=== PATIENT | male | born 1935 | race Two or more races ===

== ENCOUNTER 2017-10-26 08:30 | Inpatient (IN) | payer MEDICARE ==
[~2017-10-26] VITALS: Ht 172.7 cm; Wt 63.5 kg
[2017-10-26] MEDS ORDERED: ONDANSETRON HCL/PF 4 MG/2 ML VIAL ONE (08:41)
--- NOTE | 2017-10-26 08:42 | NUR ---
PT TAKEN TO CT SCAN.
--- NOTE | 2017-10-26 08:45 | NUR ---
[id number] FROM [facility] FOR AMS, LAST KNOWN WELL TIME 20MIN AGO. HYPOTENSIVE, SOB AND VOMITING. ON NON-REBREATHER MASK. NOTED PALE, YELLOWISH IN COLOR. IV ACCESS FAMILY ASSISTANT. SEEN Levi Blanco MD FOR EVAL. BS-206. SAFETY AND COMFORT MEASURES PROVIDED. WILL MONITOR.
[2017-10-26] MEDS ORDERED: ONDANSETRON HCL/PF 4 MG/2 ML VIAL IVP ONE (09:00)
[2017-10-26] MEDS ORDERED: AZITHROMYCIN 500 MG in IV D5W 250 ML IV ONE (09:00)
[2017-10-26] MEDS ORDERED: CEFTRIAXONE 1GM BAG (ER ONLY) 50 ML IV ONE ×2 (09:00→09:39)
[2017-10-26] MEDS ORDERED: IV NS 0.9% 1,000 ML BAG IV ONE ×3 (09:00→12:30)
[2017-10-26] MEDS ORDERED: VANCOMYCIN 1 GM in IV D5W 250 ML IV ONE (09:00)
[2017-10-26 09:06] LABS: BASOPHILS % (AUTO) 0.2 % (0.0-2.0); EOSINOPHILS # (AUTO) 0.2 /CMM (0.0-0.7); EOSINOPHILS % (AUTO) 1.7 % (0.0-6.0); HEMATOCRIT 34 % (39-51); HEMOGLOBIN 11.2 g/dL (13.5-17.5); LYMPHOCYTES # (AUTO) 2.9 /CMM (0.8-4.8); LYMPHOCYTES % (AUTO) 23.6 % (20.0-44.0); MEAN CORPUSCULAR HEMOGLOBIN 30 PG (26.0-33.0); MEAN CORPUSCULAR HGB CONC 33 g/dl (31.0-36.0); MEAN CORPUSCULAR VOLUME 91 fL (80-96); MONOCYTES # (AUTO) 0.5 /CMM (0.1-1.30); MONOCYTES % (AUTO) 3.8 % (2.0-12.0); NEUTROPHILS # (AUTO) 8.8 /CMM (1.8-8.9); NEUTROPHILS % (AUTO) 70.7 % (43.0-81.0); PLATELET COUNT (AUTO) 224 /CMM (150-450); RDW COEFFICIENT OF VARIATION 14.6 (11.5-15.0); RED BLOOD CELL COUNT(AUTO) 3.76 MIL/uL (4.5-6.0); WHITE BLOOD COUNT (AUTO) 12.4 K/uL (4.3-11.0)
[2017-10-26 09:16] LABS: CALCIUM, SERUM 9.1 mg/dL (8.5-10.1); CARBON DIOXIDE 22 mmol/L (21-32); CHLORIDE 112 mmol/L (98-107); CREATININE 1.8 mg/dL (0.6-1.3); GLUCOSE 210 mg/dL (74-106); POTASSIUM 3.7 mmol/L (3.5-5.1); SODIUM SERUM 145 mmol/L (136-145); UREA NITROGEN, BLOOD 33 mg/dL (7-18)
--- NOTE | 2017-10-26 09:20 | NUR ---
SECOND IV ACCESS STARTED. BLOOD DRAWN FOR LABS. URINE SAMPLE OBTAINED, SENT. NOTED IN SOILED DIAPER, CHANGED AND CLEANED PER PROTOCOL.
--- NOTE | 2017-10-26 09:45 | NUR ---
ASHVIN AT BS.
--- NOTE | 2017-10-26 09:50 | NUR ---
ORDERS FOR MEDS CARRIED OUT.
[2017-10-26] MEDS ORDERED: LISI10TA5 PO (10:22)
[2017-10-26] MEDS ORDERED: PANT40TA4 PO (10:22)
[2017-10-26] MEDS ORDERED: DOCU-25 PO (10:22)
[2017-10-26] MEDS ORDERED: MULT-213 PO (10:22)
[2017-10-26] MEDS ORDERED: LOSA100T15 PO (10:22)
[2017-10-26] MEDS ORDERED: LORA0.5T PO (10:22)
[2017-10-26 10:35] LABS: APPEARANCE,URINE CLOUDY (CLEAR); BILIRUBIN,URINE NEGATIVE (NEGATIVE); BLOOD, URINE TRACE-INTA Ery/uL (NEGATIVE); COLOR,URINE YELLOW (YELLOW); KETONES,URINE NEGATIVE (NEGATIVE); LEUKOCYTE ESTERASE ,URINE 2+ (NEGATIVE); NITRITE, URINE NEGATIVE (NEGATIVE); PROTEIN,URINE 2+ mg/dl (NEGATIVE); UGLUCOSE TRACE mg/dL (NEGATIVE); UROBILINOGEN,URINE 0.2 EU/dL (0.2)
--- NOTE | 2017-10-26 10:40 | NUR ---
PT TAKEN TO CT.
[2017-10-26 10:50] LABS: BACTERIA,URINE Few /HPF (None Seen); SQUAMOUS EPITHELIAL CELL,UR Few /HPF (None Seen); WBC,URINE 80-100 /HPF (0-3)
[2017-10-26] MEDS ORDERED: ACETAMINOPHEN 325 MG TABLET PO PRN (11:00)
[2017-10-26] MEDS ORDERED: MAG HYDROX/AL HYDROX/SIMETH 30 ML UDC PO PRN (11:00)
[2017-10-26] MEDS ORDERED: ZOLPIDEM TARTRATE 5 MG TABLET PO PRN (11:00)
[2017-10-26] MEDS ORDERED: Z GUARD REMEDY 2 OZ OINT TP PRN (11:00)
[2017-10-26] MEDS ORDERED: MAGNESIUM HYDROXIDE 30 ML UDC PO PRN (11:00)
[2017-10-26] MEDS ORDERED: ONDANSETRON HCL/PF 4 MG/2 ML VIAL IVP PRN (11:00)
[2017-10-26] MEDS ORDERED: HYDROCODONE/APAP 5/325MG 1 EACH TABLET PO PRN (11:00)
[2017-10-26] MEDS ORDERED: DOCUSATE SODIUM 100 MG CAPSULE PO PRN (11:00)
--- NOTE | 2017-10-26 12:40 | NUR ---
Patient is resting comfortably in bed with eyes closed. Easily aroused. VSS
[2017-10-26 12:51] LABS: BILIRUBIN,DIRECT 0.1 mg/dL (0.0-0.2); BILIRUBIN,TOTAL 0.6 mg/dL (0.2-1.0)
--- NOTE | 2017-10-26 13:30 | NUR ---
PT SWITCHED FROM NONREBREATHER MASK TO NC- TOLERATING WELL.
--- NOTE | 2017-10-26 16:18 | NUR ---
REPORT GIVEN TO TR NOLEN FOR LILIAN 113-2.
[2017-10-26 17:00] VITALS: BP 161/67
--- NOTE | 2017-10-26 17:00 | NUR ---
LILIAN RN NOTES RECEIVED PT FROM ER, DX SEPSIS/UTI, CONFUSED, OPENS EYES, FLAT AFFECT, ON O2 3LPM NC, NOT IN ANY DISTRESS, NO SOB, RESPIRATION UNLABORED, TELEMETRY READS SR HR 68 , NO SIGNS OF PAIN OR DISCOMFORT, L WRIST G 20 AND RAC G 20 IV ACCESS, BOTH FLUSHES WELL, BOTH SITES CLEAR. ONGOING IVF TO RT AC. BED REST, REGULAR DIET, FEEDER, SEE NURSING FLOWSHEET FOR SKIN ISSUES, PHOTOS TAKEN AND PLACED IN CHART, CALL LIGHT WITHIN REACH, BED LOW LOCKED, SR UP X 2, NEEDS ANTICIPATED, WILL CONTINUE TO MONITOR.
[2017-10-26] MEDS: ENOXAPARIN SODIUM 30 MG/0.3 ML DISP.SYRIN SQ SCH (17:48)
--- NOTE | 2017-10-26 18:46 | NUR ---
LILIAN CLOSING NOTES ALL NEEDS MET. RESTING COMFORTABLY. NOT [place]IAN [place] DISTRESS. WILL ENDORSE TO NEXT SHIFT FOR MUNIRA.
[2017-10-26 20:00] VITALS: BP 144/60
--- NOTE | 2017-10-26 20:00 | NUR ---
RN INITIAL NOTES RECEIVED THE PATIENT AWAKE ON BED, CONFUSED, DOES NOT FOLLOW COMMANDS. ON 4L NASAL CANNULA, SATURATING WELL, NO S/S OF RESP DISTRESS. CURRENTLY SINUS HUGO ON THE MONITOR, HR 50'S. ON DIAPERS ONLY. LEFT WRIST 20G AND RIGHT AC 20G WITH NS @ 75MLS/HR, NO S/S OF INFILTRATION/INFECTION, DRESSING CDI. BED LOW AND LOCKED, SIDERAILS UP, BED ALARM ON. WILL MONITOR
--- NOTE | 2017-10-26 21:30 | NUR ---
RN NOTES GAVE REPORT TO TAMANNA HOUSE FOR THE PATIENT'S CONTINUITY OF CARE
--- NOTE | 2017-10-26 21:56 | NUR ---
INITIAL RN NOTES PT RESTING IN BED, NOT IN ANY DISTRESS, NO SOB, RESPIRATION UNLABORED, NO SIGNS OF PAIN OR DISCOMFORT, L WRIST G 20 AND RAC G 20 IV ACCESS, BOTH FLUSHES WELL, BOTH SITES CLEAR, BED REST, REGULAR DIET, CALL LIGHT WITHIN REACH, BED LOW LOCKED, SR UP X 2, NEEDS ANTICIPATED, WILL CONTINUE TO MONITOR.
[2017-10-27 04:00] VITALS: BP 152/68
[2017-10-27] MEDS: IV NS 0.9% 1,000 ML IV PRN ×3 (05:57→20:33)
--- NOTE | 2017-10-27 07:04 | NUR ---
RN CLOSING NOTES PT RESTING IN BED, NOT IN ANY DISTRESS, NO SOB, RESPIRATION UNLABORED, NO SIGNS OF PAIN OR DISCOMFORT, L WRIST G 20 AND RAC G 20 IV ACCESS, BOTH FLUSHES WELL, BOTH SITES CLEAR, REGULAR DIET, CALL LIGHT WITHIN REACH, BED LOW LOCKED, SR UP X 2, NEEDS ANTICIPATED, RN WILL ENDORSE TO AM RN.
[2017-10-27 07:07] LABS: BASOPHILS % (AUTO) 0.2 % (0.0-2.0); EOSINOPHILS % (AUTO) 0.1 % (0.0-6.0); HEMATOCRIT 32 % (39-51); LYMPHOCYTES # (AUTO) 1.4 /CMM (0.8-4.8); LYMPHOCYTES % (AUTO) 10.2 % (20.0-44.0); MEAN CORPUSCULAR HEMOGLOBIN 31 PG (26.0-33.0); MEAN CORPUSCULAR HGB CONC 34 g/dl (31.0-36.0); MEAN CORPUSCULAR VOLUME 91 fL (80-96); MONOCYTES # (AUTO) 0.7 /CMM (0.1-1.30); MONOCYTES % (AUTO) 4.9 % (2.0-12.0); NEUTROPHILS # (AUTO) 11.7 /CMM (1.8-8.9); NEUTROPHILS % (AUTO) 84.6 % (43.0-81.0); PLATELET COUNT (AUTO) 173 /CMM (150-450); RDW COEFFICIENT OF VARIATION 14.6 (11.5-15.0); RED BLOOD CELL COUNT(AUTO) 3.57 MIL/uL (4.5-6.0); WHITE BLOOD COUNT (AUTO) 13.8 K/uL (4.3-11.0)
[2017-10-27 07:18] LABS: CARBON DIOXIDE 27 mmol/L (21-32); CHLORIDE 113 mmol/L (98-107); CREATININE 1.6 mg/dL (0.6-1.3); GLUCOSE 101 mg/dL (74-106); MAGNESIUM 1.9 mg/dL (1.8-2.4); PHOSPHORUS 3.8 mg/dL (2.5-4.9); POTASSIUM 4.1 mmol/L (3.5-5.1); SODIUM SERUM 147 mmol/L (136-145); UREA NITROGEN, BLOOD 30 mg/dL (7-18)
--- NOTE | 2017-10-27 07:30 | NUR ---
RN NOTES RECEIVED PT IN STABLE CONDITION, CONFUSED, RESTING IN BED. ON 4L NC SATING WELL NO SOB OR DISTRESS NOTED. RAC 20G IV SITE WITH IVF AT 75ML/HR. LW20G IV INTACT. BED LOCKED AND IN LOWEST POSITION, CALL LIGHT WITHIN REACH, SIDE RAILS UPX3, WILL CONT TO MONITOR.
[2017-10-27 08:00] VITALS: BP 175/66
[2017-10-27] MEDS: MULTIVIT, IRON, MIN NO. 8, FA 1 TAB PO SCH (08:26)
[2017-10-27] MEDS: PANTOPRAZOLE 40 MG TABLET.DR PO SCH (08:26)
[2017-10-27 10:00] VITALS: BP 161/86
[2017-10-27] MEDS ORDERED: CEFTRIAXONE 1 G in IV D5W 50 ML IV SCH (10:00)
--- NOTE | 2017-10-27 10:00 | NUR ---
RN NOTES REPORT GIVEN TO RN FOR CONTINUITY OF CARE ON 2ND FLOOR, PT TRANSFERRED IN STABLE CONDITION.
--- NOTE | 2017-10-27 10:00 | NUR ---
ms near eastern archaeology lecturer notes received report from LILIAN nurse patient in bed, awake, no apparent distress noted. On 02 @ 4lpm via NC with 02 saturation of 100%. IV in placed and intact and patent, with IVF infusing well. No complaint or pain noted. Alert and oriented x 2. Kept patient clean and comfortable in bed, call light with in patient reach, will continue to monitor accordingly.
[2017-10-27 16:00] VITALS: BP 156/76
--- NOTE | 2017-10-27 19:25 | NUR ---
ms rn closing notes All needs provided, attended, and anticipated. kept patient clean and comfortable in bed, call light with in patient reach, endorsed to next shift RN to continue care.
--- NOTE | 2017-10-27 19:30 | NUR ---
RN NOTE; RECEIVED PT IN BED AWAKE AND RESPONSIVE. BREATHING EVENLY. NO SOB. NAD. NO S/S OR C/O PAIN OR DISCOMFORT. ON ONGOING IVF HYDRATION. IV SITE INTACT. NEEDS ATTENDED. BED LOW LOCKED. CALL LIGHT WITHIN REACH. WILL CONT TO MONITOR ,
[2017-10-27 20:00] VITALS: BP 145/79
[2017-10-27] MEDS: MEROPENEM 500 MG in IV NS 0.9% 50 ML IV SCH (20:25)
[2017-10-27] MEDS: ENOXAPARIN SODIUM 30 MG/0.3 ML DISP.SYRIN SQ SCH (20:30)
--- NOTE | 2017-10-27 21:41 | NUR ---
LAVINIAIEN GIVEN ORDERED FOR PT INABILITY TO FALL SLEEP. WILL CONT TO MONITOR.
--- NOTE | 2017-10-28 06:31 | NUR ---
PT IN BED SLEEPING. BREATHING EVENLY. NO SOB. NO ACUTE EVENT DURING THE NIGHT. NEEDS ATTENDED. CLEANED AND DRIED. BED LOW LOCKED. CALL LIGHT WITHIN REACH,. WILL CONT TO MONITOR AND WILL ENDORSE TO AM SHIFT FOR MUNIRA.
--- NOTE | 2017-10-28 07:25 | NUR ---
ms rn initial notes Received patient in bed, asleep, head of bed elevated, no SOB or distress noted, on 02 @4lpm via NC and tolerated well, 02 saturation of 97%. IV intact and patent with IVF infusing well. No pain or discomfort noted. Kept patient clean and comfortable in bed, call light with in patient reach, will continue to monitor accordingly.
[2017-10-28 08:00] VITALS: BP 168/84
[2017-10-28] MEDS: MULTIVIT, IRON, MIN NO. 8, FA 1 TAB PO SCH (08:41)
[2017-10-28] MEDS: MEROPENEM 500 MG in IV NS 0.9% 50 ML IV SCH ×2 (08:41→20:26)
[2017-10-28] MEDS: PANTOPRAZOLE 40 MG TABLET.DR PO SCH (08:41)
[2017-10-28] MEDS: IV NS 0.9% 1,000 ML IV PRN (08:46)
[2017-10-28 11:58] VITALS: BP 168/84
[2017-10-28 16:00] VITALS: BP 166/74
[2017-10-28] MEDS ORDERED: hydrOXYzine PAMOATE 25 MG CAPSULE PO PRN (17:30)
[2017-10-28 20:00] VITALS: BP 168/82
[2017-10-28] MEDS: ENOXAPARIN SODIUM 30 MG/0.3 ML DISP.SYRIN SQ SCH (20:41)
--- NOTE | 2017-10-28 20:55 | NUR ---
RN NOTE; RECEIVED PT IN BED AWAKE AND RESPONSIVE. BREATHING EVENLY. NO SOB. NAD. NO S/S OR C/O PAIN OR DISCOMFORT. ON ONGOING IVF HYDRATION. IV SITE INTACT. NEEDS ATTENDED. BED LOW LOCKED. CALL LIGHT WITHIN REACH. WILL CONT TO MONITOR , Addendum: 10/28/17 at 2055 by TU COLLAZO RN WRONG TIME DOCUMENTATION
[2017-10-28 21:00] VITALS: BP 158/78
[2017-10-29] MEDS: IV NS 0.9% 1,000 ML IV PRN (02:30)
[2017-10-29] MEDS ORDERED: hydrALAZINE HCL IV 20 MG VIAL ONE (05:54)
[2017-10-29] MEDS ORDERED: hydrALAZINE HCL IV 20 MG VIAL IV ONE (06:00)
--- NOTE | 2017-10-29 06:00 | NUR ---
PT W/ HIGH BP OF 180/80, HR:51. PT ALERT NO CHANGE IN BASELINE MENTAL STATUS. NO S/S OR C/O HEADACHE. PAGED EDENILSON AYON MANAGER ORACLE RETAIL AND MADE HIM AWARE. MANAGER ORACLE RETAIL W/ A NEW ORDER FOR HYDRALAZINE 10MG IVP X1. NOTED. AND CARRIED OUT. WILL CONT TO MONITOR,
[2017-10-29 06:59] LABS: BASOPHILS % (AUTO) 0.3 % (0.0-2.0); EOSINOPHILS # (AUTO) 0.5 /CMM (0.0-0.7); EOSINOPHILS % (AUTO) 5.1 % (0.0-6.0); HEMATOCRIT 33 % (39-51); HEMOGLOBIN 11.1 g/dL (13.5-17.5); LYMPHOCYTES # (AUTO) 1.9 /CMM (0.8-4.8); LYMPHOCYTES % (AUTO) 19.4 % (20.0-44.0); MEAN CORPUSCULAR HEMOGLOBIN 30 PG (26.0-33.0); MEAN CORPUSCULAR HGB CONC 33 g/dl (31.0-36.0); MEAN CORPUSCULAR VOLUME 92 fL (80-96); MONOCYTES # (AUTO) 0.6 /CMM (0.1-1.30); MONOCYTES % (AUTO) 6.7 % (2.0-12.0); NEUTROPHILS # (AUTO) 6.5 /CMM (1.8-8.9); NEUTROPHILS % (AUTO) 68.5 % (43.0-81.0); PLATELET COUNT (AUTO) 189 /CMM (150-450); RDW COEFFICIENT OF VARIATION 14.4 (11.5-15.0); RED BLOOD CELL COUNT(AUTO) 3.64 MIL/uL (4.5-6.0); WHITE BLOOD COUNT (AUTO) 9.6 K/uL (4.3-11.0)
[2017-10-29 07:00] LABS: ALANINE AMINOTRANSFERASE 13 U/L (12-78); ALBUMIN 2.4 g/dL (3.4-5.0); ALKALINE PHOSPHATASE 73 U/L (46-116); ASPARTATE AMINOTRANSFERASE 14 U/L (15-37); BILIRUBIN,TOTAL 0.6 mg/dL (0.2-1.0); CALCIUM, SERUM 8.6 mg/dL (8.5-10.1); CARBON DIOXIDE 26 mmol/L (21-32); CHLORIDE 110 mmol/L (98-107); CREATININE 1.3 mg/dL (0.6-1.3); GLUCOSE 104 mg/dL (74-106); MAGNESIUM 1.7 mg/dL (1.8-2.4); PHOSPHORUS 2.5 mg/dL (2.5-4.9); POTASSIUM 3.9 mmol/L (3.5-5.1); SODIUM SERUM 144 mmol/L (136-145); TOTAL PROTEIN, SERUM 6.2 g/dL (6.4-8.2); UREA NITROGEN, BLOOD 30 mg/dL (7-18)
--- NOTE | 2017-10-29 07:30 | NUR ---
RN NOTES PATIENT IN BED, AOX2, ON ROOM AIR, RESPIRATIONS EVEN AND UNLABORED. APPEARS CALM AND IN NO DISTRESS, IV ACCESS PATENT AND INTACT NO REDNESS OR INFILTRATION NOTED.PROVIDED COMFORT AND SAFETY MEASURES. BED IN LOWEST AND LOCKED POSITION, SIDERAILS UP X 2. WILL CONTINUE TO MONITOR
--- NOTE | 2017-10-29 07:45 | NUR ---
PT IN BED DOZING INTERMITTENTLY. BREATHING EVENLY. NAD. NO S/S OR C/O PAIN OR DISCOMFORT. REPORT GIVEN TO MELECIO FOR MUNIRA AND TO F/U W/ BP.
[2017-10-29 08:00] VITALS: BP_SYST 190; BP_SYST 197; BP_DIAS 74; BP_DIAS 81
[2017-10-29] MEDS: MULTIVIT, IRON, MIN NO. 8, FA 1 TAB PO SCH (08:53)
[2017-10-29] MEDS: PANTOPRAZOLE 40 MG TABLET.DR PO SCH (08:53)
[2017-10-29] MEDS: MEROPENEM 500 MG in IV NS 0.9% 50 ML IV SCH (08:53)
[2017-10-29] MEDS ORDERED: LISINOPRIL (10MG) 10 MG TABLET PO SCH ×2 (10:00→17:00)
--- NOTE | 2017-10-29 10:00 | NUR ---
RN NOTES NOTIFIED BOTH DR. ROGERS AND DR. BROWN ABOUT HYPERTENSION, SBP IN 170-190 RANGE WILL AWAIT ORDERS AND CONTINUE TO MONITOR
[2017-10-29] MEDS: Magnesium 1GM/D5W 100ML PREMIX 100 ML IV SCH ×2 (12:38→13:28)
--- NOTE | 2017-10-29 14:22 | NUR ---
RN NOTES PATIENT WITH DISCHARGE ORDERS TO SNF PER MD AWAITING PLACEMENT, WILL CONTINUE TO ASSIST WITH DISCHARGE PROCESS AND CONTINUE TO MONITOR, DAUGHTER AWARE
[2017-10-29] MEDS ORDERED: FLU VACC QS 2017-18(36MOS+)/PF 0.5 ML DISP.SYRIN IM ONE (14:30)
--- NOTE | 2017-10-29 15:08 | NUR ---
RN NOTES PT NOTED WITH MANUAL BLOOD PRESSURE OF 200/[address] ROGERS TO NOTIFY WILL AWAIT CALL BACK
--- NOTE | 2017-10-29 15:37 | NUR ---
RN NOTES PER DR ROGERS WITH ORDERS FOR HYDRALAZINE, WILL ADMINISTER AND CONTINUE TO MONITOR, PER DR ROGERS PT IS STILL TO DISCHARGED ONCE BP COMES DOWN TO WNL, DAUGHTER MADE AWARE
[2017-10-29] MEDS: hydrALAZINE HCL 50 MG TABLET PO SCH ×2 (15:57→16:22)
[2017-10-29] MEDS ORDERED: AMLODIPINE BESYLATE 10 MG TABLET PO SCH (16:00)
[2017-10-29] MEDS ORDERED: hydrALAZINE HCL 50 MG TABLET PO SCH ×2 (17:00)
[2017-10-29] MEDS ORDERED: CLOTRIMAZOLE 1% 15 GM TUBE TP SCH (17:00)
[2017-10-29 18:00] VITALS: BP 200/80
--- NOTE | 2017-10-29 18:20 | NUR ---
RN NOTES PATIENT IN BED, AOX2, ON ROOM AIR, RESPIRATIONS EVEN AND UNLABORED. APPEARS CALM AND IN NO DISTRESS, IV ACCESS AND ID BAND REMOVED WITH NO ASE NOTED.REVIEWED DC INSTRUCTIONS WITH PT AND DAUGHTER AND DR. ROGERS PRESENT, PT TO GO TO [facility] WITH HH DISCHARGED IN STABLE CONDITION ASSISTED TO LOBBY
== END 2017-10-29 18:20 | DRG 871 ==
LOC: ER 08:32 → TELE1 16:51 → TELE-TD 16:57 → MEDSG1 20:51 → MEDSG2 10-27 09:26
PROVIDERS: ADMIT Internal Medicine; ATTEND Internal Medicine
DX: A41.9 Sepsis, unspecified organism (principal); G92 Toxic encephalopathy; N17.0 Acute kidney failure with tubular necrosis; J18.9 Pneumonia, unspecified organism; N39.0 Urinary tract infection, site not specified; W18.30XA Fall on same level, unspecified, initial encounter; F02.80 Dementia in other diseases classified elsewhere, unspecified severity, without behavioral disturbance, psychotic disturbance, mood disturbance, and anxiety; G20 Parkinson's disease; I25.10 Atherosclerotic heart disease of native coronary artery without angina pectoris; M19.90 Unspecified osteoarthritis, unspecified site; E78.5 Hyperlipidemia, unspecified; D64.9 Anemia, unspecified; Z88.8 Allergy status to other drugs, medicaments and biological substances; Z79.899 Other long term (current) drug therapy; I12.9 Hypertensive chronic kidney disease with stage 1 through stage 4 chronic kidney disease, or unspecified chronic kidney disease; N18.9 Chronic kidney disease, unspecified; Z86.73 Personal history of transient ischemic attack (TIA), and cerebral infarction without residual deficits; Z95.1 Presence of aortocoronary bypass graft; R13.10 Dysphagia, unspecified; Z93.1 Gastrostomy status; Z96.641 Presence of right artificial hip joint; K21.9 Gastro-esophageal reflux disease without esophagitis
CPT/HCPCS: 36415; 70450-TC; 71010-TC; 72020-TC; 72192-TC; 73521; 80048-TC; 80053-TC; 81000-TC; 82247-TC; 82248-TC; 82962-TC; 83605-TC; 83735-TC; 84100-TC; 85025-TC; 87040-TC; 87081-TC; 87086-TC; 95819-TC; 97116-TC; 97530-TC; A4216; A4606; J0360; J0456; J0696; J1650; J2185; J2405; J3370; J3475; J7030; J7060; Q0177; Q2036; Z7610

== ENCOUNTER 2017-11-05 11:00 | Outpatient (CLI) | payer MEDICAID, MEDICARE ==
[2017-11-05 10:50] VITALS: BP 138/57
[~2017-11-05 11:00] MED LIST: DOCU-141 PO; LISI10TA5 PO; LORA0.5T PO; LOSA100T15 PO; MULT-213 PO; PANT40TA4 PO
== END 2017-11-05 23:59 | disposition home or self-care (01) ==
LOC: MSC 11:00
PROVIDERS: ATTEND Internal Medicine
DX: G92 Toxic encephalopathy (principal); G20 Parkinson's disease; I25.10 Atherosclerotic heart disease of native coronary artery without angina pectoris; K21.9 Gastro-esophageal reflux disease without esophagitis; E78.5 Hyperlipidemia, unspecified; I12.9 Hypertensive chronic kidney disease with stage 1 through stage 4 chronic kidney disease, or unspecified chronic kidney disease; N18.9 Chronic kidney disease, unspecified; R53.1 Weakness; D64.9 Anemia, unspecified; N17.0 Acute kidney failure with tubular necrosis; R13.10 Dysphagia, unspecified; Z95.1 Presence of aortocoronary bypass graft

== ENCOUNTER 2017-11-10 12:59 | Inpatient (IN) | payer MEDICARE ==
[~2017-11-10] VITALS: Ht 157.5 cm; Wt 62.6 kg
[2017-11-10] MEDS ORDERED: IV NS 0.9% 500 ML BAG IV ONE (13:30)
[2017-11-10 13:32] LABS: BASOPHILS # (AUTO) 0.6 /CMM (0.0-0.2); BASOPHILS % (AUTO) 4.8 % (0.0-2.0); EOSINOPHILS % (AUTO) 0.2 % (0.0-6.0); HEMATOCRIT 34 % (39-51); HEMOGLOBIN 11.9 g/dL (13.5-17.5); LYMPHOCYTES # (AUTO) 0.9 /CMM (0.8-4.8); LYMPHOCYTES % (AUTO) 6.8 % (20.0-44.0); MEAN CORPUSCULAR HEMOGLOBIN 31 PG (26.0-33.0); MEAN CORPUSCULAR HGB CONC 35 g/dl (31.0-36.0); MEAN CORPUSCULAR VOLUME 88 fL (80-96); MONOCYTES # (AUTO) 0.6 /CMM (0.1-1.30); MONOCYTES % (AUTO) 4.4 % (2.0-12.0); NEUTROPHILS # (AUTO) 10.7 /CMM (1.8-8.9); NEUTROPHILS % (AUTO) 83.8 % (43.0-81.0); PLATELET COUNT (AUTO) 361 /CMM (150-450); RDW COEFFICIENT OF VARIATION 13.9 (11.5-15.0); RED BLOOD CELL COUNT(AUTO) 3.86 MIL/uL (4.5-6.0); WHITE BLOOD COUNT (AUTO) 12.8 K/uL (4.3-11.0)
[2017-11-10 13:46] LABS: PROTHROMBIN TIME 10.4 SECS (9.5-12.7)
[2017-11-10 13:47] LABS: CALCIUM, SERUM 9.6 mg/dL (8.5-10.1); CARBON DIOXIDE 25 mmol/L (21-32); CHLORIDE 107 mmol/L (98-107); CREATININE 1.9 mg/dL (0.6-1.3); GLUCOSE 152 mg/dL (74-106); POTASSIUM 4.6 mmol/L (3.5-5.1); SODIUM SERUM 140 mmol/L (136-145); UREA NITROGEN, BLOOD 31 mg/dL (7-18)
[2017-11-10 13:51] LABS: TROPONIN I < 0.017 ng/mL (0.00-0.056)
[2017-11-10 13:52] LABS: ALANINE AMINOTRANSFERASE 9 U/L (12-78); ALBUMIN 3.3 g/dL (3.4-5.0); ALKALINE PHOSPHATASE 105 U/L (46-116); ASPARTATE AMINOTRANSFERASE 22 U/L (15-37); BILIRUBIN,DIRECT 0.1 mg/dL (0.0-0.2); BILIRUBIN,TOTAL 0.7 mg/dL (0.2-1.0); TOTAL PROTEIN, SERUM 7.4 g/dL (6.4-8.2)
[2017-11-10] MEDS ORDERED: FLUO40CA8 PO (14:20)
[2017-11-10] MEDS ORDERED: AMLO10TA2 PO (14:20)
[2017-11-10] MEDS ORDERED: HYDR100T27 PO (14:20)
[2017-11-10] MEDS ORDERED: ISOS30TA9 PO (14:20)
[2017-11-10] MEDS ORDERED: CARB-93 PO (14:20)
[2017-11-10] MEDS ORDERED: ATOR40TA PO (14:20)
[2017-11-10] MEDS ORDERED: LACT10SO PO (14:20)
[2017-11-10] MEDS ORDERED: MAGNESIUM HYDROXIDE 30 ML UDC PO PRN (15:00)
[2017-11-10] MEDS ORDERED: ZOLPIDEM TARTRATE 5 MG TABLET PO PRN (15:00)
[2017-11-10] MEDS ORDERED: MAG HYDROX/AL HYDROX/SIMETH 30 ML UDC PO PRN (15:00)
[2017-11-10] MEDS ORDERED: ONDANSETRON HCL/PF 4 MG/2 ML VIAL IVP PRN (15:00)
[2017-11-10] MEDS ORDERED: Z GUARD REMEDY 2 OZ OINT TP PRN (15:00)
[2017-11-10] MEDS ORDERED: ACETAMINOPHEN 325 MG TABLET PO PRN (15:00)
[2017-11-10] MEDS ORDERED: HYDROCODONE/APAP 5/325MG 1 EACH TABLET PO PRN (15:00)
[2017-11-10 16:29] VITALS: BP 129/64
[2017-11-10] MEDS ORDERED: DIPHENHYDRAMINE HCL 12.5 MG/5 ML UDC PO PRN (17:30)
[2017-11-10] MEDS: IV NS 0.9% 1,000 ML IV PRN (17:30)
[2017-11-10] MEDS: diphenhydrAMINE HCL ELIX 25 MG/10 ML UDC PO PRN (18:32)
[2017-11-10 20:00] VITALS: BP 166/65
[2017-11-10 21:45] VITALS: BP 160/83
[2017-11-10] MEDS ORDERED: hydrALAZINE HCL 50 MG TABLET PO ONE (22:30)
[2017-11-10] MEDS ORDERED: hydrALAZINE HCL 50 MG TABLET ONE (22:40)
[2017-11-11] VITALS: BP 153/98
[2017-11-11 00:24] VITALS: BP 153/98
[2017-11-11 04:00] VITALS: BP 163/81
[2017-11-11] MEDS: diphenhydrAMINE HCL ELIX 25 MG/10 ML UDC PO PRN (04:53)
[2017-11-11 06:28] LABS: APPEARANCE,URINE CLEAR (CLEAR); BILIRUBIN,URINE NEGATIVE (NEGATIVE); BLOOD, URINE NEGATIVE Ery/uL (NEGATIVE); COLOR,URINE YELLOW (YELLOW); KETONES,URINE NEGATIVE (NEGATIVE); LEUKOCYTE ESTERASE ,URINE NEGATIVE (NEGATIVE); NITRITE, URINE NEGATIVE (NEGATIVE); PH,URINE 6.5 (5.0-8.0); PROTEIN,URINE TRACE mg/dl (NEGATIVE); UGLUCOSE NEGATIVE (NEGATIVE); UROBILINOGEN,URINE 0.2 EU/dL (0.2)
[2017-11-11 07:18] LABS: BACTERIA,URINE Few /HPF (None Seen); RBC,URINE 0-2 /HPF (0-2); SQUAMOUS EPITHELIAL CELL,UR Rare /HPF (None Seen)
[2017-11-11 07:20] LABS: CALCIUM, SERUM 9.3 mg/dL (8.5-10.1); CARBON DIOXIDE 24 mmol/L (21-32); CHLORIDE 108 mmol/L (98-107); CREATININE 1.6 mg/dL (0.6-1.3); GLUCOSE 111 mg/dL (74-106); MAGNESIUM 1.9 mg/dL (1.8-2.4); PHOSPHORUS 3.3 mg/dL (2.5-4.9); POTASSIUM 4.1 mmol/L (3.5-5.1); SODIUM SERUM 141 mmol/L (136-145); UREA NITROGEN, BLOOD 25 mg/dL (7-18)
[2017-11-11 07:23] LABS: BASOPHILS % (AUTO) 0.4 % (0.0-2.0); EOSINOPHILS # (AUTO) 0.2 /CMM (0.0-0.7); EOSINOPHILS % (AUTO) 2.6 % (0.0-6.0); HEMATOCRIT 37 % (39-51); HEMOGLOBIN 12.6 g/dL (13.5-17.5); LYMPHOCYTES # (AUTO) 1.9 /CMM (0.8-4.8); LYMPHOCYTES % (AUTO) 26.1 % (20.0-44.0); MEAN CORPUSCULAR HEMOGLOBIN 31 PG (26.0-33.0); MEAN CORPUSCULAR HGB CONC 34 g/dl (31.0-36.0); MEAN CORPUSCULAR VOLUME 90 fL (80-96); MONOCYTES # (AUTO) 0.6 /CMM (0.1-1.30); MONOCYTES % (AUTO) 8.4 % (2.0-12.0); NEUTROPHILS # (AUTO) 4.5 /CMM (1.8-8.9); NEUTROPHILS % (AUTO) 62.5 % (43.0-81.0); PLATELET COUNT (AUTO) 337 /CMM (150-450); RDW COEFFICIENT OF VARIATION 14.6 (11.5-15.0); RED BLOOD CELL COUNT(AUTO) 4.12 MIL/uL (4.5-6.0); WHITE BLOOD COUNT (AUTO) 7.2 K/uL (4.3-11.0)
[2017-11-11 08:00] VITALS: BP 153/92
[2017-11-11] MEDS: hydrALAZINE HCL 50 MG TABLET PO SCH ×2 (09:00→17:29)
[2017-11-11] MEDS: HYDROCORTISONE 1% CREAM 28.35 GM TUBE TP SCH ×3 (09:00→17:34)
[2017-11-11 16:00] VITALS: BP 139/80
[2017-11-11] MEDS ORDERED: hydrALAZINE HCL 25 MG TABLET PO PRN (16:30)
[2017-11-11] MEDS ORDERED: LORAZEPAM 0.5 MG TABLET PO PRN (16:30)
[2017-11-11] MEDS ORDERED: DOCUSATE SODIUM 100 MG CAPSULE PO PRN (16:30)
[2017-11-11] MEDS: CARBIDOPA/LEVODOPA 25/100 MG 1 UDTAB PO SCH ×2 (17:30→22:18)
[2017-11-11 20:00] VITALS: BP 148/68
[2017-11-11] MEDS ORDERED: ATORVASTATIN 40 MG TABLET PO SCH (22:00)
[2017-11-11] MEDS: IV NS 0.9% 1,000 ML IV PRN (22:18)
[2017-11-12 08:00] VITALS: BP 190/80
[2017-11-12] MEDS: CARBIDOPA/LEVODOPA 25/100 MG 1 UDTAB PO SCH ×2 (08:15→13:07)
[2017-11-12] MEDS: hydrALAZINE HCL 50 MG TABLET PO SCH (08:16)
[2017-11-12] MEDS: HYDROCORTISONE 1% CREAM 28.35 GM TUBE TP SCH (08:17)
[2017-11-12 08:36] LABS: BASOPHILS % (AUTO) 0.6 % (0.0-2.0); EOSINOPHILS # (AUTO) 0.4 /CMM (0.0-0.7); EOSINOPHILS % (AUTO) 6.3 % (0.0-6.0); HEMATOCRIT 32 % (39-51); HEMOGLOBIN 10.9 g/dL (13.5-17.5); LYMPHOCYTES # (AUTO) 2.3 /CMM (0.8-4.8); LYMPHOCYTES % (AUTO) 36.2 % (20.0-44.0); MEAN CORPUSCULAR HEMOGLOBIN 31 PG (26.0-33.0); MEAN CORPUSCULAR HGB CONC 34 g/dl (31.0-36.0); MEAN CORPUSCULAR VOLUME 90 fL (80-96); MONOCYTES # (AUTO) 0.6 /CMM (0.1-1.30); MONOCYTES % (AUTO) 9.5 % (2.0-12.0); NEUTROPHILS % (AUTO) 47.4 % (43.0-81.0); PLATELET COUNT (AUTO) 265 /CMM (150-450); RDW COEFFICIENT OF VARIATION 14.9 (11.5-15.0); RED BLOOD CELL COUNT(AUTO) 3.57 MIL/uL (4.5-6.0); WHITE BLOOD COUNT (AUTO) 6.4 K/uL (4.3-11.0)
[2017-11-12] MEDS ORDERED: AMLODIPINE BESYLATE 10 MG TABLET PO SCH (09:00)
[2017-11-12] MEDS ORDERED: FLUOXETINE HCL 20 MG CAPSULE PO SCH (09:00)
[2017-11-12 09:09] LABS: CALCIUM, SERUM 8.6 mg/dL (8.5-10.1); CARBON DIOXIDE 24 mmol/L (21-32); CHLORIDE 109 mmol/L (98-107); CREATININE 1.5 mg/dL (0.6-1.3); GLUCOSE 88 mg/dL (74-106); MAGNESIUM 1.8 mg/dL (1.8-2.4); PHOSPHORUS 3.5 mg/dL (2.5-4.9); POTASSIUM 4.1 mmol/L (3.5-5.1); SODIUM SERUM 141 mmol/L (136-145); UREA NITROGEN, BLOOD 23 mg/dL (7-18)
[2017-11-12 12:00] VITALS: BP 190/80
[2017-11-12] MEDS: IV NS 0.9% 1,000 ML IV PRN (12:00)
== END 2017-11-12 14:50 | DRG 682 ==
LOC: ER 13:04 → MED 15:35 → TELE 22:09 → MED 11-11 13:38
PROVIDERS: ADMIT Internal Medicine; ATTEND Internal Medicine
DX: N17.0 Acute kidney failure with tubular necrosis (principal); G92 Toxic encephalopathy; E44.0 Moderate protein-calorie malnutrition; E88.09 Other disorders of plasma-protein metabolism, not elsewhere classified; D63.8 Anemia in other chronic diseases classified elsewhere; D72.829 Elevated white blood cell count, unspecified; E78.5 Hyperlipidemia, unspecified; E86.0 Dehydration; F03.90 Unspecified dementia, unspecified severity, without behavioral disturbance, psychotic disturbance, mood disturbance, and anxiety; I12.9 Hypertensive chronic kidney disease with stage 1 through stage 4 chronic kidney disease, or unspecified chronic kidney disease; N18.9 Chronic kidney disease, unspecified; I25.10 Atherosclerotic heart disease of native coronary artery without angina pectoris; G20 Parkinson's disease; Z86.73 Personal history of transient ischemic attack (TIA), and cerebral infarction without residual deficits; Z87.440 Personal history of urinary (tract) infections; Z95.1 Presence of aortocoronary bypass graft; Z79.899 Other long term (current) drug therapy; Z91.81 History of falling; Z68.25 Body mass index [BMI] 25.0-25.9, adult
CPT/HCPCS: 36415; 70450-TC; 71010-TC; 80048-TC; 80076-TC; 81000-TC; 83605-TC; 83735-TC; 84100-TC; 84484-TC; 85025-TC; 85730-TC; 87040-TC; 87081-TC; 87086-TC; 92521; A4606; J7030; J7040; Q0163; Z7610

== ENCOUNTER 2017-11-16 11:25 | Inpatient (IN) | payer MEDICARE ==
[~2017-11-16] VITALS: Ht 167.6 cm; Wt 59.9 kg
[~2017-11-16 11:25] MED LIST changes: +AMLO10TA2 PO; +ATOR40TA PO; +CARB-93 PO; +FLUO40CA8 PO; +HYDR100T27 PO; +ISOS30TA9 PO; +LACT10SO PO
--- NOTE | 2017-11-16 11:39 | NUR ---
JENNY FROM [facility] DT ALTERED MENTAL STATUS. PER REPORT PT IS MORE ALTERED THAN USUAL. PATIENT RECEIVED AWAKE, HOWEVER CONFUSED,. APPEARS IN NO APPRENT DISTRESS. SKIN IS WARM TO TOUCH AND NON DIAPHORETIC, AFEBRILE. VSS
--- NOTE | 2017-11-16 13:02 | NUR ---
FAMILY AT BEDSIDE
--- NOTE | 2017-11-16 13:07 | NUR ---
PATIENT WAS TAKEN TO CT
[2017-11-16 13:29] LABS: APPEARANCE,URINE Clear (CLEAR); BILIRUBIN,URINE SMALL (NEGATIVE); BLOOD, URINE Negative Ery/uL (NEGATIVE); COLOR,URINE Yellow (YELLOW); KETONES,URINE Trace (NEGATIVE); LEUKOCYTE ESTERASE ,URINE Negative (NEGATIVE); NITRITE, URINE Negative (NEGATIVE); PROTEIN,URINE 100 mg/dl (NEGATIVE); UGLUCOSE Negative (NEGATIVE)
[2017-11-16 13:32] LABS: BASOPHILS # (AUTO) 0.1 /CMM (0.0-0.2); BASOPHILS % (AUTO) 0.6 % (0.0-2.0); EOSINOPHILS % (AUTO) 0.2 % (0.0-6.0); HEMATOCRIT 33 % (39-51); HEMOGLOBIN 11.5 g/dL (13.5-17.5); LYMPHOCYTES # (AUTO) 0.7 /CMM (0.8-4.8); LYMPHOCYTES % (AUTO) 6.2 % (20.0-44.0); MEAN CORPUSCULAR HEMOGLOBIN 31 PG (26.0-33.0); MEAN CORPUSCULAR HGB CONC 35 g/dl (31.0-36.0); MEAN CORPUSCULAR VOLUME 89 fL (80-96); MONOCYTES # (AUTO) 0.6 /CMM (0.1-1.30); MONOCYTES % (AUTO) 5.5 % (2.0-12.0); NEUTROPHILS # (AUTO) 9.4 /CMM (1.8-8.9); NEUTROPHILS % (AUTO) 87.5 % (43.0-81.0); PLATELET COUNT (AUTO) 257 /CMM (150-450); RDW COEFFICIENT OF VARIATION 14.1 (11.5-15.0); RED BLOOD CELL COUNT(AUTO) 3.71 MIL/uL (4.5-6.0); WHITE BLOOD COUNT (AUTO) 10.8 K/uL (4.3-11.0)
[2017-11-16 13:35] LABS: BACTERIA,URINE Few /HPF (None Seen); RBC,URINE 0-2 /HPF (0-2); SQUAMOUS EPITHELIAL CELL,UR Few /HPF (None Seen); WBC,URINE 0-2 /HPF (0-3)
[2017-11-16 13:43] LABS: CALCIUM, SERUM 9.2 mg/dL (8.5-10.1); CARBON DIOXIDE 24 mmol/L (21-32); CHLORIDE 108 mmol/L (98-107); CREATININE 1.8 mg/dL (0.6-1.3); GLUCOSE 180 mg/dL (74-106); POTASSIUM 4.2 mmol/L (3.5-5.1); SODIUM SERUM 142 mmol/L (136-145); UREA NITROGEN, BLOOD 25 mg/dL (7-18)
[2017-11-16 13:49] LABS: ALANINE AMINOTRANSFERASE 7 U/L (12-78); ALBUMIN 3.3 g/dL (3.4-5.0); ALKALINE PHOSPHATASE 111 U/L (46-116); ASPARTATE AMINOTRANSFERASE 18 U/L (15-37); BILIRUBIN,DIRECT 0.1 mg/dL (0.0-0.2); BILIRUBIN,TOTAL 0.6 mg/dL (0.2-1.0); TOTAL PROTEIN, SERUM 7.1 g/dL (6.4-8.2)
[2017-11-16 13:51] LABS: INR 0.95 (0.87-1.13); PROTHROMBIN TIME 9.9 SECS (9.5-12.7); TROPONIN I 0.029 ng/mL (0.00-0.056)
--- NOTE | 2017-11-16 19:15 | NUR ---
REPORT GIVEN TO TAMANNA PAYNE FOR MUNIRA
--- NOTE | 2017-11-16 20:03 | NUR ---
PATIENT IS SLEEPING, EASY TO AROUSE WITH VERBAL STIMULI. VSS. NAD NOTED.
[2017-11-16 20:45] VITALS: BP 133/69
--- NOTE | 2017-11-16 20:45 | NUR ---
RN NOTES RECEIVED PATIENT FROM ER FOR DX ALTERED MENTAL STATUS. PATIENT IS CONFUSED; RESPONSIVE TO VOICE AND TOUCH. IV SITE PATENT, INTACT; FLUSHED. SKIN ASSESSMENT DONE. TELE READING SB HR 58. ON LOW BED WITH BILATERAL UPPER SIDE RAILS UP. CALL ROSE WITHIN EASY REACH. WILL CONTINUE TO MONITOR.
--- NOTE | 2017-11-16 20:51 | NUR ---
TRANSFERRED PATIENT TO TELE BED VIA ALS PROTOCOL, NO INCIDENT NOTED.
[2017-11-16] MEDS ORDERED: LACTULOSE 10 G/15 ML UDC (PYXIS) PO PRN (22:00)
[2017-11-16] MEDS ORDERED: Z GUARD REMEDY 2 OZ OINT TP PRN (22:00)
[2017-11-16] MEDS ORDERED: DOCUSATE SODIUM 100 MG CAPSULE PO PRN (22:00)
[2017-11-16] MEDS ORDERED: ENOXAPARIN SODIUM 40 MG/0.4 ML DISP.SYRIN SQ SCH (22:00)
[2017-11-16] MEDS ORDERED: ACETAMINOPHEN 325 MG TABLET PO PRN (22:00)
[2017-11-16] MEDS ORDERED: ONDANSETRON HCL/PF 4 MG/2 ML VIAL IVP PRN (22:00)
[2017-11-16] MEDS ORDERED: ENOXAPARIN SODIUM 40 MG/0.4 ML DISP.SYRIN SQ ONE (22:19)
[2017-11-16] MEDS ORDERED: ATORVASTATIN 40 MG TABLET ONE (22:20)
[2017-11-16] MEDS: ATORVASTATIN 40 MG TABLET PO SCH (22:50)
[2017-11-16] MEDS: IV NS 0.9% 1,000 ML IV PRN (23:16)
[2017-11-17] VITALS: BP 166/83
[2017-11-17 04:00] VITALS: BP 154/75
[2017-11-17] MEDS ORDERED: ISOSORBIDE DINITRATE (20MG) 20 MG TABLET ONE (05:13)
[2017-11-17 05:22] LABS: BASOPHILS % (AUTO) 0.6 % (0.0-2.0); EOSINOPHILS # (AUTO) 0.1 /CMM (0.0-0.7); EOSINOPHILS % (AUTO) 1.8 % (0.0-6.0); HEMATOCRIT 34 % (39-51); HEMOGLOBIN 11.8 g/dL (13.5-17.5); LYMPHOCYTES # (AUTO) 1.9 /CMM (0.8-4.8); LYMPHOCYTES % (AUTO) 24.3 % (20.0-44.0); MEAN CORPUSCULAR HEMOGLOBIN 31 PG (26.0-33.0); MEAN CORPUSCULAR HGB CONC 35 g/dl (31.0-36.0); MEAN CORPUSCULAR VOLUME 88 fL (80-96); MONOCYTES # (AUTO) 0.7 /CMM (0.1-1.30); MONOCYTES % (AUTO) 8.3 % (2.0-12.0); NEUTROPHILS # (AUTO) 5.3 /CMM (1.8-8.9); PLATELET COUNT (AUTO) 239 /CMM (150-450); RDW COEFFICIENT OF VARIATION 13.7 (11.5-15.0); RED BLOOD CELL COUNT(AUTO) 3.86 MIL/uL (4.5-6.0)
[2017-11-17 05:32] LABS: ALANINE AMINOTRANSFERASE 15 U/L (12-78); ALBUMIN 3.2 g/dL (3.4-5.0); ALKALINE PHOSPHATASE 106 U/L (46-116); ASPARTATE AMINOTRANSFERASE 17 U/L (15-37); BILIRUBIN,TOTAL 0.8 mg/dL (0.2-1.0); CALCIUM, SERUM 9.2 mg/dL (8.5-10.1); CARBON DIOXIDE 25 mmol/L (21-32); CHLORIDE 113 mmol/L (98-107); CREATININE 1.6 mg/dL (0.6-1.3); GLUCOSE 95 mg/dL (74-106); MAGNESIUM 1.9 mg/dL (1.8-2.4); PHOSPHORUS 3.4 mg/dL (2.5-4.9); POTASSIUM 3.9 mmol/L (3.5-5.1); SODIUM SERUM 147 mmol/L (136-145); UREA NITROGEN, BLOOD 26 mg/dL (7-18)
[2017-11-17] MEDS: ISOSORBIDE DINITRATE (20MG) 20 MG TABLET PO SCH ×3 (05:40→21:00)
[2017-11-17 05:46] LABS: CHOLESTEROL 148 mg/dL (<200); HDL CHOLESTEROL 47 mg/dL (40-60); LDL 85 mg/dL (0-99); THYROID STIMULATING HORMONE 0.686 uIU/mL (0.358-3.74); TRIGLYCERIDES 87 mg/dL (30-150)
--- NOTE | 2017-11-17 06:21 | NUR ---
RN NOTES PATIENT IN BED ASLEEP, EASILY AROUSABLE. RESPIRATIONS EVEN. NO SIGNS OF PAIN NOTED. DUE MEDS GIVEN WITH NO ASE NOTED. NEEDS ATTENDED. KEPT CLEAN AND DRY. SAFETY PRECAUTIONS AND COMFORT MEASURES IN PLACE. WILL GIVE REPORT TO DAY SHIFT FOR CONTINUITY OF CARE.
[2017-11-17] MEDS ORDERED: NA PHOS,M-B/NA PHOS,DI-BA 1 EA ENEMA RC PRN (07:30)
--- NOTE | 2017-11-17 07:45 | NUR ---
CHIEF HYDROELECTRIC STATION OPERATOR OPENING NOTE PATIENT IS ALERT AND ORIENTED x1. VERBAL, SPEAKS [place]. NO PAIN AT THIS TIME NOTED. NO SOB OR DISTRESS NOTED. CALL LIGHT WITHIN REACH. SAFETY MEASURES IMPLEMENTED. BED ALARM ON FOR SAFETY. PATIENT ON RESTRAINTS FOR SAFETY. WILL OFFER FOOD AND WATER, REPOSITION NEEDED. FREQUENT CHECKS. WILL CONTINUE TO MONITOR THROUGHOUT SHIFT
[2017-11-17 08:00] VITALS: BP 136/58
[2017-11-17] MEDS: FLUOXETINE HCL 20 MG CAPSULE PO SCH (08:52)
[2017-11-17] MEDS: AMLODIPINE BESYLATE 10 MG TABLET PO SCH ×2 (08:53→08:56)
[2017-11-17] MEDS: CARBIDOPA/LEVODOPA 25/100 MG 1 UDTAB PO SCH ×2 (08:53→16:26)
[2017-11-17] MEDS: PANTOPRAZOLE 40 MG TABLET.DR PO SCH (08:53)
[2017-11-17] MEDS: LISINOPRIL (10MG) 10 MG TABLET PO SCH ×2 (08:54→17:00)
[2017-11-17] MEDS: hydrALAZINE HCL 50 MG TABLET PO SCH ×2 (09:00→17:00)
[2017-11-17] MEDS: LOSARTAN POTASSIUM 50 MG TABLET PO SCH (09:00)
[2017-11-17 16:00] VITALS: BP 118/45
[2017-11-17] MEDS ORDERED: HYDROCORTISONE 0.5% CREAM 28.35 GM TUBE TP PRN (16:30)
--- NOTE | 2017-11-17 18:28 | NUR ---
MS RN CLOSING NOTE PATIENT IS ALERT AND ORIENTED x1-2. NO PAIN AT THIS TIME. NO SOB OR DISTRESS NOTED. CALL LIGHT WITHIN REACH AT ALL TIMES. SAFETY MEASURES IMPLEMENTED. ABLE TO COMMUNICATE NEEDS. SOFT RESTRAINTS FOR SAFETY IN PLACE. IV INTACT AND PATENT NO REDNESS OR SWELLING NOTED IV FLUIDS RUNNING AT THIS TIME AT 75 ML/HR TOLERATING WELL. TELE MONITOR -SB-50S. ALL DUE MEDICATIONS GIVEN ORDERED. ALL NURSING CARE NEEDS ATTENDED TO NEEDED. DID PHYSICAL THERAPY TODAY. WILL ENDORSE TO ADVANCED MANUFACTURING CONSULTANT NURSE FOR MUNIRA
--- NOTE | 2017-11-17 19:20 | NUR ---
PRODUCTION SPECIALIST OPENING NOTES: RECEIVED PT AND IS AWAKE IN BED AT THIS TIME. PT IS CONGOLESE SPEAKING ONLY. PT IS A/OX1. PT IS ON BILATERAL RESTRAINTS AT THIS TIME FOR SAFETY. PT HAS FLUIDS BEING INFUSED AT NS 75ML/HR. CALL LIGHT WITHIN PT'S REACH. BED KEPT IN LOW, LOCKED POSITION, AND SIDE RAILS X 2UP. WILL CONTINUE TO MONITOR PT.
[2017-11-17 20:00] VITALS: BP 143/67
[2017-11-17] MEDS: IV NS 0.9% 1,000 ML IV PRN (20:07)
[2017-11-17] MEDS: ENOXAPARIN SODIUM 40 MG/0.4 ML DISP.SYRIN SQ SCH (20:29)
--- NOTE | 2017-11-17 21:30 | NUR ---
BETTING AGENCY MANAGER NOTES: ISORDIL 30MG HELD. CHARGE NURSE NOTIFIED ABOUT HEART RATE BEING 48. CHARGE NURSE ALSO SAID TO HOLD IT. WILL CONTINUE TO MONITOR PT.
[2017-11-17] MEDS: IV 1/2NS 1000 ML 1,000 ML IV PRN (22:01)
[2017-11-17] MEDS: ATORVASTATIN 40 MG TABLET PO SCH (22:01)
--- NOTE | 2017-11-18 05:56 | NUR ---
RN NOTES: ISORDIL STILL NOT ADMINISTERED. AWAITING FOR CALL BACK FROM LANA TUCKER.
--- NOTE | 2017-11-18 06:20 | NUR ---
MS RN NOTES: LANA CANALES PAGED AGAIN. AWAITING FOR CALL BACK.
[2017-11-18] MEDS: ISOSORBIDE DINITRATE (20MG) 20 MG TABLET PO SCH ×3 (06:42→21:51)
[2017-11-18 06:45] LABS: BASOPHILS % (AUTO) 0.4 % (0.0-2.0); EOSINOPHILS # (AUTO) 0.4 /CMM (0.0-0.7); EOSINOPHILS % (AUTO) 4.6 % (0.0-6.0); HEMATOCRIT 32 % (39-51); HEMOGLOBIN 11.3 g/dL (13.5-17.5); LYMPHOCYTES # (AUTO) 2.7 /CMM (0.8-4.8); LYMPHOCYTES % (AUTO) 32.7 % (20.0-44.0); MEAN CORPUSCULAR HEMOGLOBIN 31 PG (26.0-33.0); MEAN CORPUSCULAR HGB CONC 35 g/dl (31.0-36.0); MEAN CORPUSCULAR VOLUME 89 fL (80-96); MONOCYTES # (AUTO) 0.7 /CMM (0.1-1.30); MONOCYTES % (AUTO) 8.2 % (2.0-12.0); NEUTROPHILS # (AUTO) 4.3 /CMM (1.8-8.9); NEUTROPHILS % (AUTO) 54.1 % (43.0-81.0); PLATELET COUNT (AUTO) 218 /CMM (150-450); RED BLOOD CELL COUNT(AUTO) 3.64 MIL/uL (4.5-6.0); WHITE BLOOD COUNT (AUTO) 8.1 K/uL (4.3-11.0)
--- NOTE | 2017-11-18 06:48 | NUR ---
RN NOTES: SPOKE WITH LANA TUCKER. OK TO GIVE ISORDIL 30MG.
--- NOTE | 2017-11-18 07:18 | NUR ---
RN CLOSING NOTES: ALL NEEDS WERE ATTENDED AND ANTICIPATED FOR. PT IS ASLEEP AT THIS TIME. PT IS MACEDONIAN SPEAKING ONLY. PT IN HIGH HUANG'S POSITION FOR NOW. PT STILL HAS BILATERAL RESTRAINTS. 2HR CHECKS DONE. PT HAS IV AND IS BEING INFUSED WITH 1/2 NS AT 80ML/HR. CALL LIGHT WITHIN PT'S REACH. BED KEPT IN LOW, LOCKED POSITION, AND SIDE RAILS X 2UP. ENDORSED TO AM NURSE FOR MUNIRA.
[2017-11-18 07:24] LABS: CALCIUM, SERUM 8.7 mg/dL (8.5-10.1); CARBON DIOXIDE 24 mmol/L (21-32); CHLORIDE 108 mmol/L (98-107); CREATININE 1.4 mg/dL (0.6-1.3); GLUCOSE 92 mg/dL (74-106); MAGNESIUM 1.6 mg/dL (1.8-2.4); PHOSPHORUS 2.7 mg/dL (2.5-4.9); POTASSIUM 3.6 mmol/L (3.5-5.1); SODIUM SERUM 140 mmol/L (136-145); UREA NITROGEN, BLOOD 23 mg/dL (7-18)
[2017-11-18 08:00] VITALS: BP 147/76
--- NOTE | 2017-11-18 08:00 | NUR ---
MS RN OPENING NOTE PATIENT IS ALERT AND ORIENTED x1. NO PAIN AT THIS TIME. NO SOB OR DISTRESS NOTED. CALL LIGHT WITHIN REACH. SAFETY MEASURES IMPLEMENTED. ABLE TO COMMUNICATE NEEDS. IV INTACT AND PATENT NO REDNESS OR SWELLING NOTED. IV FLUIDS RUNNING AT THIS TIME TOLERATING WELL. WILL CONTINUE TO MONITOR THROUGHOUT SHIFT.
[2017-11-18] MEDS: CARBIDOPA/LEVODOPA 25/100 MG 1 UDTAB PO SCH ×2 (08:36→17:11)
[2017-11-18] MEDS: FLUOXETINE HCL 20 MG CAPSULE PO SCH (08:36)
[2017-11-18] MEDS: PANTOPRAZOLE 40 MG TABLET.DR PO SCH (08:36)
[2017-11-18] MEDS: AMLODIPINE BESYLATE 10 MG TABLET PO SCH (08:36)
[2017-11-18] MEDS: LOSARTAN POTASSIUM 50 MG TABLET PO SCH (08:37)
[2017-11-18] MEDS: LISINOPRIL (10MG) 10 MG TABLET PO SCH ×2 (09:00→17:11)
[2017-11-18] MEDS: hydrALAZINE HCL 50 MG TABLET PO SCH ×2 (09:00→17:00)
[2017-11-18] MEDS: ASPIRIN EC 325 MG TABLET.DR PO SCH (09:10)
[2017-11-18] MEDS: IV 1/2NS 1000 ML 1,000 ML IV PRN (11:44)
[2017-11-18 12:00] VITALS: BP 113/70
--- NOTE | 2017-11-18 13:02 | NUR ---
RN NOTE PER MD TO CANCEL MRI. ORDERS NOTED AND CARRIED OUT. CHARGE NURSE INFORMED. FAMILY INFORMED.
[2017-11-18] MEDS: Magnesium 1GM/D5W 100ML PREMIX 100 ML IV SCH ×2 (13:08→14:24)
[2017-11-18 16:00] VITALS: BP 149/65
--- NOTE | 2017-11-18 18:54 | NUR ---
MS RN CLOSING NOTE PATIENT IS ALERT AND ORIENTED x1. NO PAIN AT THIS TIME. NO SOB OR DISTRESS NOTED. CALL LIGHT WITHIN REACH AT ALL TIMES. SAFETY MEASURES IMPLEMENTED. ABLE TO COMMUNICATE NEEDS. ALL DUE MEDICATIONS GIVEN ORDERED. ALL NURSING CARE NEEDS ATTENDED TO NEEDED. MAGNESIUM -1.6 REPLACED WITH TWO BAGS. LABS IN AM. [facility] PER MD AND CASE MANAGEMENT. WILL ENDORSE TO ANIMAL KILLER NURSE FOR MUNIRA
--- NOTE | 2017-11-18 19:30 | NUR ---
MS RN INITIAL NOTE PT RECEIVED AWAKE AND ALERT X1-2 WITH NOTED CONFUSION AND SLOVAK SPEAKING. ON ROOM AIR AND SATURATING WELL. HOB ELEVATED. ON BILATERAL SOFT WRIST RESTRAINTS IN PLACE AND NO DISCOLORATION NOTED. PT VERY RESTLESS AND MOVING BODY CONSTANTLY. IV ANTON #20 CLEAN INTACT WITH FLUIDS INFUSING. BED LOCKED IN PLACE AND ALARM ON. CALL LIGHT WITHIN REACH. WILL CONTINUE TO MONITOR.
[2017-11-18 20:00] VITALS: BP 144/51
[2017-11-18] MEDS: ATORVASTATIN 40 MG TABLET PO SCH (21:51)
[2017-11-18] MEDS: ENOXAPARIN SODIUM 40 MG/0.4 ML DISP.SYRIN SQ SCH (21:52)
[2017-11-19] MEDS: IV 1/2NS 1000 ML 1,000 ML IV PRN (04:16)
[2017-11-19] MEDS: ISOSORBIDE DINITRATE (20MG) 20 MG TABLET PO SCH ×2 (05:30→13:47)
[2017-11-19 06:45] LABS: BASOPHILS % (AUTO) 0.4 % (0.0-2.0); EOSINOPHILS % (AUTO) 5.7 % (0.0-6.0); HEMATOCRIT 36 % (39-51); HEMOGLOBIN 12.2 g/dL (13.5-17.5); MEAN CORPUSCULAR HEMOGLOBIN 31 PG (26.0-33.0); MEAN CORPUSCULAR HGB CONC 34 g/dl (31.0-36.0); MEAN CORPUSCULAR VOLUME 90 fL (80-96); MONOCYTES % (AUTO) 8.6 % (2.0-12.0); NEUTROPHILS % (AUTO) 56.3 % (43.0-81.0); PLATELET COUNT (AUTO) 249 /CMM (150-450); RDW COEFFICIENT OF VARIATION 14.9 (11.5-15.0); RED BLOOD CELL COUNT(AUTO) 3.98 MIL/uL (4.5-6.0); WHITE BLOOD COUNT (AUTO) 7.4 K/uL (4.3-11.0)
[2017-11-19 06:46] LABS: EOSINOPHILS # (AUTO) 0.4 /CMM (0.0-0.7); LYMPHOCYTES # (AUTO) 2.1 /CMM (0.8-4.8); MONOCYTES # (AUTO) 0.6 /CMM (0.1-1.30); NEUTROPHILS # (AUTO) 4.1 /CMM (1.8-8.9)
[2017-11-19 07:01] LABS: CARBON DIOXIDE 26 mmol/L (21-32); CHLORIDE 107 mmol/L (98-107); CREATININE 1.3 mg/dL (0.6-1.3); GLUCOSE 93 mg/dL (74-106); POTASSIUM 3.8 mmol/L (3.5-5.1); SODIUM SERUM 142 mmol/L (136-145); UREA NITROGEN, BLOOD 14 mg/dL (7-18)
--- NOTE | 2017-11-19 07:30 | NUR ---
RN OPENING NOTES RECEIVED PATIENT IN BED RESTING. NO ACUTE DISTRESS, NO SOB NOTED. NO S/S OF PAIN OR DISCOMFORT. PATIENT ON SOFT RESTRAINTS FOR SAFETY, WILL CHECK CIRCULATION EVERY 2 HOURS NEEDED. BED IN LOW POSITION, LOCKED, SIDERAILS UPX2, SEMI FOWLERS POSITION. CALL LIGHT IN REACH. WILL CONTINUE TO MONITOR ACCORDINGLY.
--- NOTE | 2017-11-19 07:41 | NUR ---
MS RN CLOSING NOTE PT REMAINED STABLE DURING SHIFT. NO ACUTE DISTRESS NOTED. BILATERAL SOFT WRIST RESTRAINTS IN PLACE. ALL SAFETY MEASURES IN PLACE. ALL NEEDS ATTENDED TO PROMPTLY. KEPT CLEAN AND DRY. CALL LIGHT WITHIN REACH. ALL DUE MEDS GIVEN ORDERED AND WELL TOLERATED. WILL ENDORSE TO NEXT SHIFT FOR CONTINUITY OF CARE.
[2017-11-19 08:00] VITALS: BP 180/72
[2017-11-19] MEDS: hydrALAZINE HCL 50 MG TABLET PO SCH ×2 (08:25→17:06)
[2017-11-19] MEDS: ASPIRIN EC 325 MG TABLET.DR PO SCH (08:33)
[2017-11-19] MEDS: PANTOPRAZOLE 40 MG TABLET.DR PO SCH (08:33)
[2017-11-19] MEDS: CARBIDOPA/LEVODOPA 25/100 MG 1 UDTAB PO SCH ×2 (08:34→17:06)
[2017-11-19] MEDS: LISINOPRIL (10MG) 10 MG TABLET PO SCH ×2 (08:35→17:06)
[2017-11-19] MEDS: AMLODIPINE BESYLATE 10 MG TABLET PO SCH (08:36)
[2017-11-19] MEDS: FLUOXETINE HCL 20 MG CAPSULE PO SCH (08:36)
[2017-11-19] MEDS: LOSARTAN POTASSIUM 50 MG TABLET PO SCH (08:36)
[2017-11-19 09:00] VITALS: BP 130/79
--- NOTE | 2017-11-19 11:00 | NUR ---
RN NOTES PATIENT WALKED WITH PT, TOLERATED WELL.
[2017-11-19 16:00] VITALS: BP 152/70
--- NOTE | 2017-11-19 16:01 | NUR ---
RN NOTES PATIENT FAMILY REFUSED MRI. NOTIFIED DR AKBAR. ALSO NOTIFIED DR MILLER, AWAITING FOR DR MILLER'S REPLY.
[2017-11-19] MEDS ORDERED: ALBU0.633 NEB (16:21)
[2017-11-19 17:06] VITALS: BP 155/77
--- NOTE | 2017-11-19 18:45 | NUR ---
[facility] NOTES DISCHARGE PATIENT IN STABLE CONDITION PICKED UP BY [facility]AK[facility]. [facility], DISCHARGE INSTRUCTIONS GIVEN. ALL BELONGINGS RETURNED. DC PAPERWORK GIVEN TO DIPPER AND BAKER. D/C IV, NO BLEEDING, NO COMPLICATIONS NOTED.
== END 2017-11-19 18:45 | DRG 682 ==
LOC: ER 11:28 → TELE 20:28 → MED 11-18 16:15
PROVIDERS: ADMIT Nurse Practitioner Acute Care; ATTEND Nurse Practitioner Acute Care
DX: N17.0 Acute kidney failure with tubular necrosis (principal); G93.40 Encephalopathy, unspecified; J18.9 Pneumonia, unspecified organism; G20 Parkinson's disease; E86.0 Dehydration; D64.9 Anemia, unspecified; F02.80 Dementia in other diseases classified elsewhere, unspecified severity, without behavioral disturbance, psychotic disturbance, mood disturbance, and anxiety; N39.0 Urinary tract infection, site not specified; F03.90 Unspecified dementia, unspecified severity, without behavioral disturbance, psychotic disturbance, mood disturbance, and anxiety; Z95.1 Presence of aortocoronary bypass graft; E78.5 Hyperlipidemia, unspecified; I25.10 Atherosclerotic heart disease of native coronary artery without angina pectoris; M19.90 Unspecified osteoarthritis, unspecified site; I25.2 Old myocardial infarction; Z88.8 Allergy status to other drugs, medicaments and biological substances; I12.9 Hypertensive chronic kidney disease with stage 1 through stage 4 chronic kidney disease, or unspecified chronic kidney disease; N18.9 Chronic kidney disease, unspecified; Z87.81 Personal history of (healed) traumatic fracture; Z79.899 Other long term (current) drug therapy
CPT/HCPCS: 36415; 70450-TC; 80048-TC; 80053-TC; 80061-TC; 80076-TC; 81000-TC; 83735-TC; 84100-TC; 84443-TC; 84484-TC; 85025-TC; 85730-TC; 87081-TC; 87086-TC; 93307-TC; 97116-TC; 97530-TC; A4606; J1650; J3475; J3490; J7030; Z7610

== ENCOUNTER 2018-01-11 14:48 | Inpatient (IN) | payer MEDICARE ==
[~2018-01-11] VITALS: Ht 177.8 cm; Wt 100.7 kg
[~2018-01-11 14:48] MED LIST changes: +ALBU0.633 NEB
--- NOTE | 2018-01-11 14:50 | NUR ---
[id number] FROM [facility] FOR MORE ALTERED THAN NORMAL. NOTED AT 1400PM TODAY, BS-136. PATIENT IS AWAKE, BUT NOT ALERT. BREATHING EVEN AND UNLABORED. NO SOB. VITALS STABLE. BUE/BLE WEAKNESS. SAFETY AND COMFORT MEASURES IN PLACE. AWAITING MD ORDERS.
[2018-01-11] MEDS ORDERED: IV NS 0.9% 500 ML BAG IV ONE (15:00)
--- NOTE | 2018-01-11 15:10 | NUR ---
URINE OBTAINED VIA STRAIGHT CATH PER MD ORDERS AND SENT TO LAB.
--- NOTE | 2018-01-11 15:15 | NUR ---
BRICK CLEANER AT BEDSIDE FOR BLOOD DRAW.
[2018-01-11 15:31] LABS: APPEARANCE,URINE Clear (CLEAR); BILIRUBIN,URINE Negative (NEGATIVE); BLOOD, URINE Negative Ery/uL (NEGATIVE); COLOR,URINE Yellow (YELLOW); KETONES,URINE Negative (NEGATIVE); LEUKOCYTE ESTERASE ,URINE Negative (NEGATIVE); NITRITE, URINE Negative (NEGATIVE); PROTEIN,URINE 30 mg/dl (NEGATIVE); UGLUCOSE Negative (NEGATIVE); UROBILINOGEN,URINE 0.2 EU/dL (0.2)
[2018-01-11 15:38] LABS: BACTERIA,URINE None seen /HPF (None Seen); RBC,URINE 0-2 /HPF (0-2); SQUAMOUS EPITHELIAL CELL,UR Few /HPF (None Seen); URINE AMORPHOUS URATE Moderate /HPF (None Seen); WBC,URINE 0-2 /HPF (0-3)
[2018-01-11 15:42] LABS: BASOPHILS % (AUTO) 0.4 % (0.0-2.0); EOSINOPHILS # (AUTO) 0.1 /CMM (0.0-0.7); EOSINOPHILS % (AUTO) 1.9 % (0.0-6.0); HEMATOCRIT 33 % (39-51); HEMOGLOBIN 11.6 g/dL (13.5-17.5); LYMPHOCYTES # (AUTO) 1.1 /CMM (0.8-4.8); LYMPHOCYTES % (AUTO) 14.6 % (20.0-44.0); MEAN CORPUSCULAR HEMOGLOBIN 32 PG (26.0-33.0); MEAN CORPUSCULAR HGB CONC 35 g/dl (31.0-36.0); MEAN CORPUSCULAR VOLUME 90 fL (80-96); MONOCYTES # (AUTO) 0.5 /CMM (0.1-1.30); MONOCYTES % (AUTO) 6.9 % (2.0-12.0); NEUTROPHILS # (AUTO) 5.8 /CMM (1.8-8.9); NEUTROPHILS % (AUTO) 76.2 % (43.0-81.0); PLATELET COUNT (AUTO) 219 /CMM (150-450); RDW COEFFICIENT OF VARIATION 13.8 (11.5-15.0); RED BLOOD CELL COUNT(AUTO) 3.68 MIL/uL (4.5-6.0); WHITE BLOOD COUNT (AUTO) 7.5 K/uL (4.3-11.0)
[2018-01-11 15:54] LABS: CARBON DIOXIDE 24 mmol/L (21-32); CHLORIDE 108 mmol/L (98-107); CREATININE 1.8 mg/dL (0.6-1.3); GLUCOSE 205 mg/dL (74-106); POTASSIUM 4.2 mmol/L (3.5-5.1); SODIUM SERUM 141 mmol/L (136-145); UREA NITROGEN, BLOOD 46 mg/dL (7-18)
[2018-01-11 16:00] LABS: ALANINE AMINOTRANSFERASE 8 U/L (12-78); ALBUMIN 3.2 g/dL (3.4-5.0); ALKALINE PHOSPHATASE 122 U/L (46-116); ASPARTATE AMINOTRANSFERASE 14 U/L (15-37); BILIRUBIN,DIRECT 0.1 mg/dL (0.0-0.2); BILIRUBIN,TOTAL 0.4 mg/dL (0.2-1.0); TOTAL PROTEIN, SERUM 7.3 g/dL (6.4-8.2)
[2018-01-11 16:01] LABS: TROPONIN I < 0.017 ng/mL (0.00-0.056)
[2018-01-11 16:06] LABS: INR 0.94 (0.85-1.15)
[2018-01-11 16:08] LABS: SERUM AMMONIA 17 umol/L (11-32)
[2018-01-11 16:15] LABS: THYROID STIMULATING HORMONE 0.392 uIU/mL (0.358-3.74)
[2018-01-11 16:30] LABS: ALCOHOL, BLOOD < 3 mg/dL (0-0)
[2018-01-11] MEDS ORDERED: ASPIRIN 300 MG/SUPP.RECT RC ONE ×2 (17:04→17:30)
--- NOTE | 2018-01-11 17:13 | NUR ---
PAGED EPIC FOR PANEL
[2018-01-11] MEDS ORDERED: NA P133E RC (17:24)
[2018-01-11] MEDS ORDERED: CHOL10002 PO (17:24)
[2018-01-11] MEDS ORDERED: MAGN400O6 PO (17:24)
[2018-01-11] MEDS ORDERED: HYDR-3026 PO (17:24)
[2018-01-11] MEDS ORDERED: ACET-868 PO (17:24)
[2018-01-11] MEDS ORDERED: NA PHOS,M-B/NA PHOS,DI-BA 1 EA ENEMA RC PRN (18:00)
[2018-01-11] MEDS ORDERED: MAGNESIUM HYDROXIDE 30 ML UDC PO PRN (18:00)
[2018-01-11] MEDS ORDERED: DOCUSATE SODIUM 100 MG CAPSULE PO PRN (18:00)
[2018-01-11] MEDS ORDERED: LACTULOSE 10 G/15 ML UDC (PYXIS) PO PRN (18:30)
[2018-01-11] MEDS ORDERED: hydrOXYzine PAMOATE 25 MG CAPSULE PO PRN (18:30)
[2018-01-11] MEDS: hydrALAZINE HCL 50 MG TABLET PO SCH (18:30)
[2018-01-11] MEDS ORDERED: ENALAPRILAT INJ (1.25 MG/ML) 1.25 MG/ML VIAL IV STA (18:36)
[2018-01-11] MEDS ORDERED: ENALAPRILAT DIHYD. (2.5MG/ML) 1.25 MG/ML VIAL IV ONE (18:39)
--- NOTE | 2018-01-11 18:41 | NUR ---
REPORT GIVEN TO EMILIE NOLEN FOR MUNIRA UPON ADMISSION.
--- NOTE | 2018-01-11 18:42 | NUR ---
MD INFORMED OF HIGH BP, ORDERED IV VASOTEC, GIVEN PER MD ORDERS.
[2018-01-11 18:46] LABS: BASOPHILS % (AUTO) 0.3 % (0.0-2.0); EOSINOPHILS # (AUTO) 0.2 /CMM (0.0-0.7); EOSINOPHILS % (AUTO) 2.5 % (0.0-6.0); HEMATOCRIT 37 % (39-51); HEMOGLOBIN 12.8 g/dL (13.5-17.5); LYMPHOCYTES # (AUTO) 1.8 /CMM (0.8-4.8); LYMPHOCYTES % (AUTO) 22.9 % (20.0-44.0); MEAN CORPUSCULAR HEMOGLOBIN 31 PG (26.0-33.0); MEAN CORPUSCULAR HGB CONC 34 g/dl (31.0-36.0); MEAN CORPUSCULAR VOLUME 89 fL (80-96); MONOCYTES # (AUTO) 0.7 /CMM (0.1-1.30); MONOCYTES % (AUTO) 8.6 % (2.0-12.0); NEUTROPHILS # (AUTO) 5.2 /CMM (1.8-8.9); NEUTROPHILS % (AUTO) 65.7 % (43.0-81.0); PLATELET COUNT (AUTO) 253 /CMM (150-450); RDW COEFFICIENT OF VARIATION 13.7 (11.5-15.0); RED BLOOD CELL COUNT(AUTO) 4.16 MIL/uL (4.5-6.0); WHITE BLOOD COUNT (AUTO) 7.9 K/uL (4.3-11.0)
--- NOTE | 2018-01-11 18:54 | NUR ---
PATIENT TRANSPORTED TO [facility] VIA ACLS PROTOCOL. RNEMILIE TO PROVIDE MUNIRA.
[2018-01-11 18:56] LABS: CARBON DIOXIDE 24 mmol/L (21-32); CHLORIDE 108 mmol/L (98-107); CREATININE 1.8 mg/dL (0.6-1.3); GLUCOSE 122 mg/dL (74-106); POTASSIUM 4.4 mmol/L (3.5-5.1); SODIUM SERUM 143 mmol/L (136-145); UREA NITROGEN, BLOOD 46 mg/dL (7-18)
[2018-01-11 19:00] LABS: INR 0.92 (0.85-1.15)
--- NOTE | 2018-01-11 19:00 | NUR ---
ADMITTING NOTES ADMIT PATIENT FROM ER ON TELE 83 Y/OLD MALE ON DX. OF CVA, AMS. TELE MONITOR ON SR-52, PATIENT NON VERBAL, NO RESPIRATORY DISTRESS, UNLABORED. PATIENT AWAKE, ROLLING THONGS, BUT UNABLE TO ANSWER QUESTIONS, V/S TAKEN BP-150/95, P-52, R-18, O2-98 ROOM AIR, T-97.4. SKIN ASSESSMENT DONE, SKIN INTACT, NEEDS ATTENDED AND ANTICIPATED. SOME OF COMPUTER ADMISSION DONE, ENDORSED ONCOMING NURSE FOR MUNIRA.
[2018-01-11 19:03] VITALS: BP 150/95
[2018-01-11 19:08] LABS: ALANINE AMINOTRANSFERASE 9 U/L (12-78); ALBUMIN 3.4 g/dL (3.4-5.0); ALKALINE PHOSPHATASE 128 U/L (46-116); ASPARTATE AMINOTRANSFERASE 16 U/L (15-37); B-TYPE NATRIURETIC PEPTIDE 287 PG/ML (0-125); BILIRUBIN,TOTAL 0.4 mg/dL (0.2-1.0); TOTAL PROTEIN, SERUM 7.7 g/dL (6.4-8.2)
--- NOTE | 2018-01-11 19:30 | NUR ---
MANAGER ASSET NOTE TELE MONITOR ON PATIENT. READING SB WITH PAC'S, 53. PATIENT AWAKE IN BED. EYES OPEN. TURNS HEAD TO NAME. APHASIC. NO RESPIRATORY DISTRESS OR S/S OF PAIN NOTED. PATIENT IS CONTINUOUSLY ROLLING HIS TONGUE. LIPS AND MOUTH ARE VERY DRY. WILL PROVIDE ORAL CARE. GENERALIZED WEAKNESS NOTED. NO DEFICITS THOUGH. NO FACIAL DROOPING, OR NEURO DEFICITS TO EXTREMITIES NOTED. SKIN INTACT WITH NO BREAKDOWN OR BRUISING. DVT PUMPS ORDERED AND WILL BE PLACED SHORTLY. BED LOCKED AND IN LOWEST POSITION, SIDE RAILS UP, CALL LIGHT WITHIN REACH. WILL CONTINUE TO MONITOR.
[2018-01-11 19:41] LABS: THYROID STIMULATING HORMONE 0.425 uIU/mL (0.358-3.74)
[2018-01-11 20:00] VITALS: BP 139/79
--- NOTE | 2018-01-11 21:30 | NUR ---
DATA KEYER NOTE PATIENT WITH ACUTE CVA. HASN'T RECEIVED SWALLOW EVAL YET. APRESOLINE 100MG AND LIPITOR HELD AT THIS TIME.
[2018-01-11] MEDS: ATORVASTATIN 40 MG TABLET PO SCH (22:00)
[2018-01-11] MEDS: ENOXAPARIN SODIUM 40 MG/0.4 ML DISP.SYRIN SQ SCH (22:06)
[2018-01-11] MEDS: BLOOD SUGAR DIAGNOSTIC 1 EACH STRIP IN SCH (22:17)
--- NOTE | 2018-01-11 22:37 | NUR ---
SPRAY I PAINTER NOTE BLOOD SUGAR 92. NO COVERAGE NEEDED AT THIS TIME.
--- NOTE | 2018-01-11 23:00 | NUR ---
HOOKER UP NOTE RECEIVED DNR ORDER FROM . KEEPING PATIENT NPO UNTIL AFTER SWALLOW EVAL TOMORROW MORNING. WILL BEGIN D5NS@75ML/HR PER . ORDERS CARRIED OUT. WILL CONTINUE TO MONITOR.
[2018-01-11] MEDS ORDERED: IV D5/ 0.9% NACL 1,000 ML IV PRN (23:30)
[2018-01-12] VITALS: BP 120/62
[2018-01-12] MEDS ORDERED: BLOOD SUGAR DIAGNOSTIC 1 EACH STRIP IN SCH
--- NOTE | 2018-01-12 00:30 | NUR ---
OCCUPATIONAL THERAPY CO DIRECTOR NOTE ACCUCHECK Q6H CANCELLED PER MD. ALREADY HAS ORDER FOR ACCUCHECKS ACHS.
[2018-01-12 04:00] VITALS: BP 212/99
[2018-01-12] MEDS: hydrALAZINE HCL IV 20 MG VIAL IV PRN ×2 (04:39→08:30)
--- NOTE | 2018-01-12 04:49 | NUR ---
NUTTER UP NOTE BLOOD PRESSURE 212/99. APRESOLINE 20MG IVP GIVEN. WILL RE-CHECK BLOOD PRESSURE. PATIENT STABLE.
--- NOTE | 2018-01-12 05:40 | NUR ---
WEATHER CLERK NOTE BLOOD PRESSURE 180/98. CALLED. WAITING FOR CALL BACK.
--- NOTE | 2018-01-12 06:11 | NUR ---
IT SECURITY ENGINEER NOTE WAITING FOR CALL BACK FROM . PATIENT SLEEPING AT THIS TIME. ALL NEEDS MET AND ATTENDED TO. WILL ENDORSE TO DAY SHIFT FOR MUNIRA.
--- NOTE | 2018-01-12 06:20 | NUR ---
telephone interceptor operator note called Dr. Rivera again. Waiting for call back.
[2018-01-12] MEDS: BLOOD SUGAR DIAGNOSTIC 1 EACH STRIP IN SCH ×4 (06:27→21:29)
[2018-01-12 06:54] LABS: BASOPHILS % (AUTO) 0.1 % (0.0-2.0); EOSINOPHILS # (AUTO) 0.1 /CMM (0.0-0.7); EOSINOPHILS % (AUTO) 1.1 % (0.0-6.0); HEMATOCRIT 38 % (39-51); HEMOGLOBIN 13.1 g/dL (13.5-17.5); LYMPHOCYTES % (AUTO) 12.1 % (20.0-44.0); MEAN CORPUSCULAR HEMOGLOBIN 31 PG (26.0-33.0); MEAN CORPUSCULAR HGB CONC 35 g/dl (31.0-36.0); MEAN CORPUSCULAR VOLUME 89 fL (80-96); MONOCYTES # (AUTO) 0.5 /CMM (0.1-1.30); MONOCYTES % (AUTO) 6.3 % (2.0-12.0); NEUTROPHILS # (AUTO) 6.9 /CMM (1.8-8.9); NEUTROPHILS % (AUTO) 80.4 % (43.0-81.0); PLATELET COUNT (AUTO) 244 /CMM (150-450); RED BLOOD CELL COUNT(AUTO) 4.24 MIL/uL (4.5-6.0); WHITE BLOOD COUNT (AUTO) 8.6 K/uL (4.3-11.0)
[2018-01-12 07:03] LABS: INR 0.95 (0.87-1.13)
[2018-01-12 07:06] LABS: CHOLESTEROL 146 mg/dL (<200); HDL CHOLESTEROL 50 mg/dL (40-60); LDL 79 mg/dL (0-99); TRIGLYCERIDES 112 mg/dL (30-150)
[2018-01-12 07:16] LABS: CALCIUM, SERUM 9.6 mg/dL (8.5-10.1); CARBON DIOXIDE 23 mmol/L (21-32); CHLORIDE 109 mmol/L (98-107); CREATININE 1.4 mg/dL (0.6-1.3); GLUCOSE 119 mg/dL (74-106); POTASSIUM 3.8 mmol/L (3.5-5.1); SODIUM SERUM 143 mmol/L (136-145); UREA NITROGEN, BLOOD 36 mg/dL (7-18)
--- NOTE | 2018-01-12 07:30 | NUR ---
PT RECEIVED RESTING COMFORTABLY IN BED. NO S/S OR C/O PAIN OR DISTRESS NOTED. SIDE RAILS UP X2, CALL LIGHT LEFT WITHIN REACH. WILL CONTINUE PLAN OF CARE.
[2018-01-12 08:00] VITALS: BP 186/100
[2018-01-12] MEDS: hydrALAZINE HCL 50 MG TABLET PO SCH ×2 (09:00→17:33)
[2018-01-12] MEDS ORDERED: MULTIVIT, IRON, MIN NO. 8, FA 1 TAB PO SCH (09:00)
[2018-01-12] MEDS: CHOLECALCIFEROL 1,000 UNIT TABLET (VIT D3) PO SCH (10:39)
[2018-01-12] MEDS: MULTIVIT, IRON, MIN NO. 8, FA 1 TAB PO SCH (10:45)
[2018-01-12] MEDS: PANTOPRAZOLE 40 MG TABLET.DR PO SCH (10:45)
[2018-01-12] MEDS: CARBIDOPA/LEVODOPA 25/100 MG 1 UDTAB PO SCH ×2 (10:46→17:33)
[2018-01-12] MEDS: AMLODIPINE BESYLATE 10 MG TABLET PO SCH (10:46)
[2018-01-12] MEDS: LISINOPRIL (10MG) 10 MG TABLET PO SCH ×2 (10:46→17:33)
[2018-01-12] MEDS: ASPIRIN EC 325 MG TABLET.DR PO SCH (10:47)
[2018-01-12] MEDS: FLUOXETINE HCL 20 MG CAPSULE PO SCH (10:47)
[2018-01-12] MEDS: LOSARTAN POTASSIUM 50 MG TABLET PO SCH (10:47)
[2018-01-12] MEDS: ISOSORBIDE MONONITRATE (30MG) 30 MG TAB.SR.24H PO SCH (10:50)
[2018-01-12] MEDS ORDERED: NITROGLYCERIN PACKET 1 GM PACKET TOP SCH (12:00)
[2018-01-12 16:00] VITALS: BP 121/60
[2018-01-12] MEDS: ENOXAPARIN SODIUM 40 MG/0.4 ML DISP.SYRIN SQ SCH (17:34)
--- NOTE | 2018-01-12 19:30 | NUR ---
MS RN NOTE RECEIVED PATIENT AWAKE IN BED. EYES OPEN. NON-VERBAL. NO S/S OF PAIN OR DISCOMFORT. NO RESPIRATORY DISTRESS. IV SITE INTACT, WITH FLUIDS RUNNING ORDERED. BED LOCKED AND IN LOWEST POSITION. SIDE RAILS UP, CALL LIGHT WITHIN REACH. WILL CONTINUE TO MONITOR.
--- NOTE | 2018-01-12 19:45 | NUR ---
CHANGE OF SHIFT REPORT PT RESTING COMFORTABLY IN BED. NO S/S OR C/O PAIN OR DISTRESS NOTED. SIDE RAILS UP X2, CALL LIGHT LEFT WITHIN REACH. PT KEPT CLEAN, DRY, AND COMFORTABLE. NO SIGNIFICANT CHANGES SINCE PREVIOUS SHIFT. REPORT GIVEN TO JAN RN
[2018-01-12 20:00] VITALS: BP 143/76
[2018-01-12] MEDS: ATORVASTATIN 40 MG TABLET PO SCH (21:29)
[2018-01-13] MEDS: BLOOD SUGAR DIAGNOSTIC 1 EACH STRIP IN SCH ×2 (06:50→12:37)
--- NOTE | 2018-01-13 07:30 | NUR ---
RECEIVED PT.VERY GROGGY.BP EXTREMELY HIGH,RECHECKED MANUALLY.SKIN WARM AND DRY.WHEN AWAKENED ALERT AND ORIENTED X1.
[2018-01-13 08:00] VITALS: BP 208/101
[2018-01-13] MEDS: PANTOPRAZOLE 40 MG TABLET.DR PO SCH (08:24)
[2018-01-13] MEDS: CARBIDOPA/LEVODOPA 25/100 MG 1 UDTAB PO SCH (08:24)
[2018-01-13] MEDS: ASPIRIN EC 325 MG TABLET.DR PO SCH (08:24)
[2018-01-13] MEDS: LISINOPRIL (10MG) 10 MG TABLET PO SCH (08:24)
[2018-01-13] MEDS: MULTIVIT, IRON, MIN NO. 8, FA 1 TAB PO SCH (08:25)
[2018-01-13] MEDS: hydrALAZINE HCL 50 MG TABLET PO SCH (08:25)
[2018-01-13] MEDS: LOSARTAN POTASSIUM 50 MG TABLET PO SCH (08:25)
[2018-01-13] MEDS: CHOLECALCIFEROL 1,000 UNIT TABLET (VIT D3) PO SCH (08:25)
[2018-01-13] MEDS: ISOSORBIDE MONONITRATE (30MG) 30 MG TAB.SR.24H PO SCH (08:26)
[2018-01-13] MEDS: AMLODIPINE BESYLATE 10 MG TABLET PO SCH (08:29)
--- NOTE | 2018-01-13 08:30 | NUR ---
MEDS CRUSHED AND ADM. WITH NO DIFFICULTY SWALLOWING.
[2018-01-13] MEDS: FLUOXETINE HCL 20 MG CAPSULE PO SCH (09:00)
[2018-01-13] MEDS ORDERED: ASPI-869 PO (11:06)
--- NOTE | 2018-01-13 11:30 | NUR ---
FAMILY MEMBER IN TO SEE PT.
--- NOTE | 2018-01-13 12:00 | NUR ---
EDENILSON SHERWOOD NP IN AND DC ORDERS GIVEN.DC PHOTOS TAKEN.
--- NOTE | 2018-01-13 14:00 | NUR ---
COUNTY SOC. WORKER IN TO SEE PT.
--- NOTE | 2018-01-13 14:30 | NUR ---
AMBULANCE TRANSPORT HERE AND ADMINISTRATIVE SERVICES OFFICER GIVEN REPORT. REMOVING HEP LOCK SUSTAINED SMALL SKIN TEAR TO LT. ARM.NON ADHERENT DRESSING APPLIED.PHOTO TAKEN PRIOR TO APPLICATION OF DRESSING.REPORT CALLED TO FACILITY.
[2018-01-13 16:00] VITALS: BP 130/83
== END 2018-01-13 16:40 | DRG 64 ==
LOC: ER 14:50 → TELE 18:50 → MED 01-12 12:46
PROVIDERS: ADMIT Internal Medicine; ATTEND Internal Medicine
DX: I63.521 Cerebral infarction due to unspecified occlusion or stenosis of right anterior cerebral artery (principal); G93.41 Metabolic encephalopathy; N17.0 Acute kidney failure with tubular necrosis; G20 Parkinson's disease; D64.9 Anemia, unspecified; F02.80 Dementia in other diseases classified elsewhere, unspecified severity, without behavioral disturbance, psychotic disturbance, mood disturbance, and anxiety; E78.5 Hyperlipidemia, unspecified; I10 Essential (primary) hypertension; I25.10 Atherosclerotic heart disease of native coronary artery without angina pectoris; Z95.1 Presence of aortocoronary bypass graft; M19.90 Unspecified osteoarthritis, unspecified site; Z87.81 Personal history of (healed) traumatic fracture; Z88.8 Allergy status to other drugs, medicaments and biological substances; F32.9 Major depressive disorder, single episode, unspecified
CPT/HCPCS: 36415; 70450-TC; 71045-TC; 80048-TC; 80053-TC; 80061-TC; 80076-TC; 80305; 81000-TC; 82140-TC; 82962-TC; 83605-TC; 83880; 84443-TC; 84484-TC; 85025-TC; 85652-TC; 85730-TC; 87081-TC; 92611-TC; 93307-TC; 93880-TC; 97110-TC; 97112-TC; 97530-TC; A4606; G0480; J0360; J1650; J3490; J7040; J7042; Z7610

== ENCOUNTER 2019-03-20 12:45 | Inpatient (IN) | payer MEDICARE, MEDICAID ==
[2019-03-20] VITALS (7 sets, daily range): BP systolic 115–140; BP diastolic 49–77
[~2019-03-20] VITALS: Ht 165.1 cm; Wt 49.9 kg
[~2019-03-20 12:45] MED LIST changes: +ACET-868 PO; -ALBU0.633 NEB; +AMIN887L PO; -AMLO10TA2 PO; +AMLO10TA7 PO; +ASPI-1169 PO; +BISA10SU8 RC; +CHOL10002 PO; +FAMO20TA8 PO; -FLUO40CA8 PO; -LACT10SO PO; +LEVE500S9 PO; -LISI10TA5 PO; -LOSA100T15 PO; +MAGN400O6 PO; +NA P133E RC; -PANT40TA4 PO
[2019-03-20] MEDS ORDERED: PANT40TA2 PO (13:12)
[2019-03-20] MEDS ORDERED: ASCO500T9 PO (13:12)
[2019-03-20] MEDS ORDERED: POLY17PO4 PO (13:12)
--- NOTE | 2019-03-20 13:20 | NUR ---
BIB ra frm snf for high sodium. PT NOT ALERT, RESPONDS TO VERBAL/TOUCH STIMULI, NONVERBAL. PRIMARY LANGUAGE IS TELUGU, BUT UNDERSTAND BENGALI, PER FAMILY. SKIN INTACT, MULTIPLE BRUISING ON BILATERAL UPPER EXREMITIES. ON 2L O2 VIA NC. VSS, RR EVEN AND UNLABORED. HOOKED TO MONITOR AND MADE COMFORTABLE. FAMILY AT BEDSIDE. READY FOR EVAL.
[2019-03-20 13:29] LABS: BASOPHILS % (AUTO) 0.4 % (0.0-2.0); EOSINOPHILS % (AUTO) 1.3 % (0.0-6.0); HEMATOCRIT 34 % (39-51); HEMOGLOBIN 10.8 g/dL (13.5-17.5); LYMPHOCYTES # (AUTO) 1.7 /CMM (0.8-4.8); LYMPHOCYTES % (AUTO) 18.3 % (20.0-44.0); MEAN CORPUSCULAR HGB CONC 32 g/dl (31.0-36.0); MEAN CORPUSCULAR VOLUME 95 fL (80-96); MONOCYTES # (AUTO) 0.3 /CMM (0.1-1.30); MONOCYTES % (AUTO) 2.7 % (2.0-12.0); NEUTROPHILS # (AUTO) 7.3 /CMM (1.8-8.9); NEUTROPHILS % (AUTO) 77.3 % (43.0-81.0); PLATELET COUNT (AUTO) 190 /CMM (150-450); RED BLOOD CELL COUNT(AUTO) 3.57 MIL/uL (4.5-6.0); WHITE BLOOD COUNT (AUTO) 9.4 K/uL (4.3-11.0)
[2019-03-20] MEDS ORDERED: IV NS 0.9% 1,000 ML BAG IV ONE (13:30)
[2019-03-20 13:43] LABS: ALANINE AMINOTRANSFERASE 10 U/L (12-78); ALBUMIN 2.1 g/dL (3.4-5.0); ALKALINE PHOSPHATASE 111 U/L (46-116); ASPARTATE AMINOTRANSFERASE 23 U/L (15-37); BILIRUBIN,DIRECT 0.2 mg/dL (0.0-0.2); BILIRUBIN,TOTAL 0.6 mg/dL (0.2-1.0); CARBON DIOXIDE 31 mmol/L (21-32); CREATININE 2.5 mg/dL (0.6-1.3); GLUCOSE 94 mg/dL (74-106); LIPASE 42 U/L (73-393); POTASSIUM 2.9 mmol/L (3.5-5.1); TOTAL PROTEIN, SERUM 7.6 g/dL (6.4-8.2)
[2019-03-20 13:47] LABS: CHLORIDE 147 mmol/L (98-107); SODIUM SERUM 188 mmol/L (136-145); UREA NITROGEN, BLOOD 84 mg/dL (7-18)
[2019-03-20] MEDS ORDERED: POTASSIUM CL. PREMIX PERIPHER. 200 ML ONE (14:17)
[2019-03-20] MEDS: POTASSIUM CL. PREMIX PERIPHER. 50 ML IV SCH ×4 (14:39→18:22)
--- NOTE | 2019-03-20 15:21 | NUR ---
Patient is resting comfortably in bed with eyes closed. Easily aroused. VSS
--- NOTE | 2019-03-20 16:42 | NUR ---
REPORT GIVEN TO TAMANNA RODRIGUEZ FOR ICU 253
[2019-03-20] MEDS ORDERED: ZOLPIDEM TARTRATE 5 MG TABLET PO PRN (17:00)
[2019-03-20] MEDS ORDERED: ACETAMINOPHEN 325 MG TABLET PO PRN (17:00)
[2019-03-20] MEDS ORDERED: Z GUARD REMEDY 2 OZ OINT TP PRN (17:00)
[2019-03-20] MEDS ORDERED: ONDANSETRON HCL/PF 4 MG/2 ML VIAL IVP PRN (17:00)
[2019-03-20] MEDS ORDERED: HYDROCODONE/APAP 5/325MG 1 EACH TABLET PO PRN (17:00)
[2019-03-20] MEDS ORDERED: IV NS 0.9% 1,000 ML IV PRN (17:00)
--- NOTE | 2019-03-20 17:30 | NUR ---
PT TRANSFERRED TO FLOOR [facility]IA [facility]
--- NOTE | 2019-03-20 18:00 | NUR ---
DIRECTOR OF GROUP COUNSELING PROGRAM ADMITTED INTO ICU FROM ER BY TRE WITH MONITOR. PT NONVERBAL. ADMITTED FOR FAILURE TO THRIVE. NO FAMILY IN AT AT THIS TIME. MEDICAL HISTORY OBTAINED BY CHART REVIEW.
[2019-03-20 18:31] LABS: ABG BASE EXCESS -0.1 mmol/L; ABG OXYGEN SATURATION 96.3 % (92.0-98.5); ABG PCO2 38.2 mmHg (35.0-45.0); ABG PH 7.421 (7.350-7.450); AaDO2 55.6 mmHg; COHb 0.3 % (0.5-1.5); MetHb 0.9 % (0.0-1.5); O2Hb 95.1 % (94.0-97.0); SITE, ABG Right Radial; VENT MODE, BG NASAL CANNULA
[2019-03-20 19:16] LABS: CALCIUM, SERUM 8.6 mg/dL (8.5-10.1); CARBON DIOXIDE 25 mmol/L (21-32); CREATININE 2.3 mg/dL (0.6-1.3); GLUCOSE 80 mg/dL (74-106); POTASSIUM 3.4 mmol/L (3.5-5.1)
[2019-03-20 19:21] LABS: CHLORIDE 148 mmol/L (98-107)
[2019-03-20 19:22] LABS: SODIUM SERUM 188 mmol/L (136-145); UREA NITROGEN, BLOOD 83 mg/dL (7-18)
--- NOTE | 2019-03-20 19:30 | NUR ---
RN NOTES RECEIVED PATIENT REPORT FROM AM RN. PATIENT IS RESTING IN BED COMFORTABLY, SLEEPING, VERBALLY NOT RESPONSIVE, CONNECTED TO MONITOR, V/S ARE WNL, CONTROLLED AFIB, ON 2L O2 VIA NC WITH SPO2 OF 99%. PATIENT IS STRICT NPO. ALL SAFETY MEASURES ARE IMPLEMENTED, BED IN LOW, LOCKED POSITION, CALL LIGHT WITHIN REACH. WILL CONTINUE TO MONITOR PATIENT CLOSELY.
--- NOTE | 2019-03-20 20:00 | NUR ---
rn notes called [facility] ABOUT PATIENT'S NA 188 CL 148 AND 0.9%NS IS RUNNING AT 100ML/HR. ALSO NOTIFIED THAT PATIENT IS ON STRICT NPO. ASKED IF HE WANTS TO CHANGE IV FLUIDS AND ORDER WAS TO CONTINUE CURRENT IV FLUIDS. WILL CONTINUE TO MONITOR PATIENT CLOSELY.
[2019-03-21] VITALS (19 sets, daily range): BP systolic 112–145; BP diastolic 41–77
[2019-03-21 01:21] LABS: CALCIUM, SERUM 8.5 mg/dL (8.5-10.1); CARBON DIOXIDE 27 mmol/L (21-32); CREATININE 2.2 mg/dL (0.6-1.3); GLUCOSE 70 mg/dL (74-106); POTASSIUM 3.4 mmol/L (3.5-5.1)
[2019-03-21 01:25] LABS: CHLORIDE 150 mmol/L (98-107); SODIUM SERUM 189 mmol/L (136-145); UREA NITROGEN, BLOOD 83 mg/dL (7-18)
--- NOTE | 2019-03-21 01:34 | NUR ---
GOT A CALL FROM [facility] WITH NEW CRITICAL LABS NA [phone] [id number] AND BUN [id number]. CALLED STEEL HEATER [facility] AND 0.9%NS WAS REPLACED WITH D50.45%NS AT 100ML/HR. WILL CONTINUE TO MONITOR PATIENT.
[2019-03-21] MEDS ORDERED: IV D5/0.45 NACL 1,000 ML IV PRN (02:00)
--- NOTE | 2019-03-21 03:00 | NUR ---
RN NOTES LUNA CATHETER 16F HAS BEEN INSERTED. URINE COLLECTED FOR URINALYSIS, CALLED LAB AND AWAITING LAB TO SALARY MANAGER.
[2019-03-21 05:22] LABS: BASOPHILS % (AUTO) 0.4 % (0.0-2.0); EOSINOPHILS % (AUTO) 2.1 % (0.0-6.0); HEMATOCRIT 32 % (39-51); HEMOGLOBIN 9.8 g/dL (13.5-17.5); LYMPHOCYTES # (AUTO) 1.6 /CMM (0.8-4.8); LYMPHOCYTES % (AUTO) 20.9 % (20.0-44.0); MEAN CORPUSCULAR HGB CONC 31 g/dl (31.0-36.0); MEAN CORPUSCULAR VOLUME 98 fL (80-96); MONOCYTES # (AUTO) 0.2 /CMM (0.1-1.30); MONOCYTES % (AUTO) 2.9 % (2.0-12.0); NEUTROPHILS # (AUTO) 5.8 /CMM (1.8-8.9); NEUTROPHILS % (AUTO) 73.7 % (43.0-81.0); PLATELET COUNT (AUTO) 173 /CMM (150-450); RED BLOOD CELL COUNT(AUTO) 3.21 MIL/uL (4.5-6.0); WHITE BLOOD COUNT (AUTO) 7.9 K/uL (4.3-11.0)
--- NOTE | 2019-03-21 05:30 | NUR ---
RN NOTES GOT A CALL FROM LAB [facility] [id number], [id number], [id number]. IT IS TRENDING DOWN. WILL CONTINUE TO MONITOR PATIENT. Addendum: 03/21/19 at 0559 by TANYA CHADWICK RN PATROL CONDUCTOR RD NOTIFIED.
[2019-03-21 05:34] LABS: CALCIUM, SERUM 8.3 mg/dL (8.5-10.1); CARBON DIOXIDE 27 mmol/L (21-32); CREATININE 2.2 mg/dL (0.6-1.3); GLUCOSE 88 mg/dL (74-106); MAGNESIUM 2.5 mg/dL (1.8-2.4); PHOSPHORUS 3.9 mg/dL (2.5-4.9); POTASSIUM 3.2 mmol/L (3.5-5.1)
[2019-03-21 05:37] LABS: CHOLESTEROL 97 mg/dL (<200); HDL CHOLESTEROL 25 mg/dL (40-60); LDL 60 mg/dL (0-99); TRIGLYCERIDES 125 mg/dL (30-150)
[2019-03-21 05:38] LABS: SODIUM SERUM 189 mmol/L (136-145)
[2019-03-21 05:39] LABS: CHLORIDE 149 mmol/L (98-107); UREA NITROGEN, BLOOD 82 mg/dL (7-18)
[2019-03-21 06:47] LABS: APPEARANCE,URINE SL CLOUDY (CLEAR); BILIRUBIN,URINE NEGATIVE (NEGATIVE); BLOOD, URINE TRACE Ery/uL (NEGATIVE); COLOR,URINE YELLOW (YELLOW); KETONES,URINE NEGATIVE (NEGATIVE); LEUKOCYTE ESTERASE ,URINE 1+ (NEGATIVE); NITRITE, URINE NEGATIVE (NEGATIVE); PROTEIN,URINE 2+ mg/dl (NEGATIVE); UGLUCOSE NEGATIVE (NEGATIVE); UROBILINOGEN,URINE 0.2 EU/dL (0.2)
--- NOTE | 2019-03-21 07:07 | NUR ---
RN NOTES PATIENT IS RESTING IN BED COMFORTABLY, AWAKE, VERBALLY NOT RESPONSIVE, V/S ARE WNL, STABLE, CONTROLLED AFIB, ON 2L O2 VIA NC WITH SPO2 OF 99%. PATIENT IS STRICT NPO. ALL SAFETY MEASURES ARE MAINTAINED, BED IN LOW, LOCKED POSITION, CALL LIGHT WITHIN REACH. WILL ENDORSE TO AM RN FOR KEYING MACHINE OPERATOR.
[2019-03-21 07:42] LABS: BACTERIA,URINE Many /HPF (None Seen); SQUAMOUS EPITHELIAL CELL,UR Rare /HPF (None Seen)
[2019-03-21 07:43] LABS: RBC,URINE 0-2 /HPF (0-2); WBC,URINE 81-100 /HPF (0-3)
[2019-03-21] MEDS: POTASSIUM CL. PREMIX PERIPHER. 50 ML IV SCH ×3 (11:14→13:45)
[2019-03-21] MEDS: IV D5W 1,000 ML IV PRN ×2 (11:22→22:08)
[2019-03-21 12:28] LABS: CALCIUM, SERUM 8.5 mg/dL (8.5-10.1); CARBON DIOXIDE 25 mmol/L (21-32); CREATININE 2.2 mg/dL (0.6-1.3); GLUCOSE 133 mg/dL (74-106); POTASSIUM 3.4 mmol/L (3.5-5.1); UREA NITROGEN, BLOOD 78 mg/dL (7-18)
[2019-03-21 12:42] LABS: CHLORIDE 148 mmol/L (98-107); SODIUM SERUM 187 mmol/L (136-145)
--- NOTE | 2019-03-21 14:00 | NUR ---
RN NOTE PATIENT SODIUM 187. TRENDING DOWN FOR LAST TWO DAYS. MD MADE AWARE.
--- NOTE | 2019-03-21 15:45 | NUR ---
GRANULATING MACHINE OPERATOR NOTE PATIENT TRANSFERRED TO [address] PER DR AYERS. REPORT CALLED TO [facility].
--- NOTE | 2019-03-21 16:10 | NUR ---
HEALTH INFORMATION MANAGEMENT DIRECTOR RECEIVING NOTES RECEIVED A 84 YEAR OLD MALE VIA GURNEY TRANSFERRED FROM ICU ACCOMPANIED BY 2 LIEUTENANT GOVERNOR. PATIENT A/O XO, NON VERBAL BASELINE. RESPONSIVE TO VERBAL AND TACTILE STIMULI. RESPIRATION EVEN AND NON LABORED WITH NO ACUTE RESPIRATORY DISTRESS, ON OXYGEN AT 2LPM VIA NASAL CANNULA AND ABLE TO TOLERATE WELL. 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 SKIN WARM TO TOUCH AND DRY. NO SIGNS AND SYMPTOMS OF PAIN AND DISCOMFORT. TELE MONITOR WITH CONTROLLED ATRIAL FIBRILLATION 64. IV SITE AT RIGHT FOREARM AND LEFT WRIST WITH NO S/SX OF INFILTRATION. PLACED BED IN LOCKED POSITION, ALARM ON AND PATIENT CLOSE TO NURSES STATION FOR FREQUENT MONITORING. CALL LIGHT PLACED IN REACH. WILL CONTINUE TO EVALUATE CARE.
[2019-03-21 18:20] LABS: CALCIUM, SERUM 8.3 mg/dL (8.5-10.1); CARBON DIOXIDE 26 mmol/L (21-32); CREATININE 2.1 mg/dL (0.6-1.3); GLUCOSE 160 mg/dL (74-106); POTASSIUM 3.2 mmol/L (3.5-5.1); UREA NITROGEN, BLOOD 77 mg/dL (7-18)
[2019-03-21 18:31] LABS: CHLORIDE 147 mmol/L (98-107); SODIUM SERUM 182 mmol/L (136-145)
--- NOTE | 2019-03-21 18:31 | NUR ---
STOCK RANCH SUPERVISOR NOTES BILLY FROM LAB CALLED FOR CRITICAL LEVEL OF NA 182 AND CL 147. NOTIFIED
--- NOTE | 2019-03-21 18:37 | NUR ---
BRINELL TESTER CLOSING NOTES PATIENT A/O X0, NON VERBAL. RESPONSIVE TO VERBAL AND TACTILE STIMULI. ASSESSED NO SHORTNESS OF BREATH, ON OXYGEN AT 2LPM VIA NASAL CANNULA. ABDOMEN SOFT AND NON DISTENDED WITH ACTIVE BOWEL SOUNDS, FC OUTPUT 450 CC. PATIENT HAS NO SIGNS AND SYMPTOMS OF PAIN AND DISCOMFORT. SKIN WARM TO TOUCH AND DRY, BOTH HEELS AND ELBOW PLACED ON OFFLOAD. IV SITE AT RIGHT FOREARM AND LEFT WRIST PATENT IN FLUSHING WITH D5W RUNNING AT 125 ML/HR. TELE MONITOR WITH CONTROLLED A-FIB. BED PLACED ON LOCKED POSITION, BED ALARM ON AND CLOSED TO NURSING STATION. ENDORSED PATIENT TO NEXT SHIFT.
--- NOTE | 2019-03-21 19:45 | NUR ---
RN MS OPENING NOTES RECEIVED PT IN BED, SLEEPING, OPENS EYES TO TOUCH. BREATHING EVEN AND UNLABORED ON 2L O2. IN NO APPARENT DISTRESS OR DISCOMFORT AT THIS TIME, IV ACCESS ON THE RFA #20G WITH D5 @125ML/HR. F/C IN PLACE AND DRAINING. BED IN LOWEST LOCKED POSITION, SAFETY MEASURES IN PLACE. WILL CONTINUE TO MONITOR FREQUENTLY.
[2019-03-22 01:29] VITALS: BP 112/60
[2019-03-22 04:51] VITALS: BP 118/64
--- NOTE | 2019-03-22 06:11 | NUR ---
FORECLOSURE CLERK CLOSING NOTES PT REMAINS IN BED, SLEEPING, OPENS EYES TO TOUCH. BREATHING EVEN AND UNLABORED ON 2L O2. IN NO APPARENT DISTRESS OR DISCOMFORT AT THIS TIME, IV ACCESS ON THE RFA #20G WITH D5 @125ML/HR. F/C IN PLACE AND DRAINING. BED IN LOWEST LOCKED POSITION, SAFETY MEASURES IN PLACE. WILL ENDORSE TO DAY NURSE FOR MUNIRA.
[2019-03-22] MEDS: IV D5W 1,000 ML IV PRN (06:54)
--- NOTE | 2019-03-22 07:53 | NUR ---
TELE MS RN PT RESTING IN BED, NO SOB NOTED. PT NOT IN ANY ACUTE DISTRESS.PT V/S STABLE, ON 2L O2 VIA NC SATURATING WITH SPO2 OF 97. PT VERBALLY NOT RESPONSIVE. AWAKE AND RARELY USES HEAD MOVEMENT TO INDICATE YES OR NO. PT CONTROLLED AFIB. PT RECEIVING IV FLUID 5% DEXTROSE AT 0700, 125ML/HR. PT BED IN LOW POSITION, CALL LIGHT WITHIN REACH. WILL CONTINUE TO MONITOR.
[2019-03-22 08:39] VITALS: BP 108/76
[2019-03-22 08:39] LABS: CALCIUM, SERUM 8.1 mg/dL (8.5-10.1); CARBON DIOXIDE 24 mmol/L (21-32); CREATININE 2.1 mg/dL (0.6-1.3); GLUCOSE 203 mg/dL (74-106); MAGNESIUM 2.3 mg/dL (1.8-2.4); PHOSPHORUS 2.8 mg/dL (2.5-4.9); UREA NITROGEN, BLOOD 68 mg/dL (7-18)
[2019-03-22 08:45] LABS: CHLORIDE 140 mmol/L (98-107); SODIUM SERUM 177 mmol/L (136-145)
[2019-03-22 08:51] LABS: BASOPHILS % (AUTO) 0.2 % (0.0-2.0); EOSINOPHILS % (AUTO) 1.7 % (0.0-6.0); HEMATOCRIT 30 % (39-51); HEMOGLOBIN 9.3 g/dL (13.5-17.5); LYMPHOCYTES # (AUTO) 1.7 /CMM (0.8-4.8); LYMPHOCYTES % (AUTO) 18.7 % (20.0-44.0); MEAN CORPUSCULAR HGB CONC 31 g/dl (31.0-36.0); MEAN CORPUSCULAR VOLUME 99 fL (80-96); MONOCYTES # (AUTO) 0.3 /CMM (0.1-1.30); MONOCYTES % (AUTO) 3.3 % (2.0-12.0); NEUTROPHILS # (AUTO) 6.8 /CMM (1.8-8.9); NEUTROPHILS % (AUTO) 76.1 % (43.0-81.0); PLATELET COUNT (AUTO) 158 /CMM (150-450); RED BLOOD CELL COUNT(AUTO) 3.02 MIL/uL (4.5-6.0); WHITE BLOOD COUNT (AUTO) 8.9 K/uL (4.3-11.0)
--- NOTE | 2019-03-22 09:00 | NUR ---
MS RN NOTES CALL RECEIVED FROM LAB WITH CRITICAL LAB RESULTS OF SODIUM :[address] SHANKAR MADE AWARE NO NEW ORDERS GIVEN.
[2019-03-22] MEDS: POTASSIUM CL. PREMIX PERIPHER. 50 ML IV SCH ×5 (11:54→19:07)
--- NOTE | 2019-03-22 15:52 | NUR ---
Social service requested by Charge Nurse for spiritual support/clergy visitation arrangement for pt. SW made arrangements for , Father Shahzad Hou or Rev. Elliot Woodruff, from [address] [address], , to visit pt. this afternoon. No other services are requested at this time. SW is available if needed.
[2019-03-22 16:10] VITALS: BP 108/83
--- NOTE | 2019-03-22 19:23 | NUR ---
MS RN CLOSING NOTES PT AWAKE AND ORIENTED X 0. PT RESTING WITH UNLABORED BREATHING, ON OXYGEN NC AT 2L. FAMILY AT BEDSIDE. PT CONTINUES TO HAVE DIARRHEA LIKE BOWEL MOVEMENTS, CLEANED WITH BED LOWERED AND LOCKED. PT ON PIER HAND HELPER, WITH CONTROLLED AFIB. PT RUNNING ON POTASSIUM CHLORIDE 50ML/HR. CALL LIGHT WITHIN REACH. MEDICATIONS GIVEN. ALL NEEDS MET. PATIENT WILL CONTINUE TO BE MONITORED.
[2019-03-22 20:00] VITALS: BP 104/47
--- NOTE | 2019-03-22 20:01 | NUR ---
RN MS CLOSING NOTES PT REMAINS IN BED, SLEEPING, OPENS EYES TO TOUCH. BREATHING EVEN AND UNLABORED ON 2L O2. IN NO APPARENT DISTRESS OR DISCOMFORT AT THIS TIME, IV ACCESS ON THE RFA #20G SL PATENT AND FLUSHING. F/C IN PLACE AND DRAINING. BED IN LOWEST LOCKED POSITION, SAFETY MEASURES IN PLACE. WILL CONTINUE TO MONITOR FOR MUNIRA
--- NOTE | 2019-03-23 06:18 | NUR ---
ELECTRICAL EXPERIMENTAL MECHANIC CLOSING NOTES PT REMAINS IN BED, SLEEPING, OPENS EYES TO TOUCH. BREATHING EVEN AND UNLABORED ON 2L O2. IN NO APPARENT DISTRESS OR DISCOMFORT AT THIS TIME, IV ACCESS ON THE RFA #20G TKO. F/C IN PLACE AND DRAINING. BED IN LOWEST LOCKED POSITION, SAFETY MEASURES IN PLACE. WILL ENDORSE TO DAY NURSE FOR MUNIRA. PER KEVIN, PT NO UNDER HOSPICE, COMFORT MEASURES ONLY
[2019-03-23 06:31] LABS: BASOPHILS % (AUTO) 0.5 % (0.0-2.0); EOSINOPHILS % (AUTO) 2.5 % (0.0-6.0); HEMATOCRIT 30 % (39-51); HEMOGLOBIN 9.4 g/dL (13.5-17.5); LYMPHOCYTES # (AUTO) 2.7 /CMM (0.8-4.8); LYMPHOCYTES % (AUTO) 33.3 % (20.0-44.0); MEAN CORPUSCULAR HGB CONC 31 g/dl (31.0-36.0); MEAN CORPUSCULAR VOLUME 99 fL (80-96); MONOCYTES # (AUTO) 0.2 /CMM (0.1-1.30); MONOCYTES % (AUTO) 2.6 % (2.0-12.0); NEUTROPHILS # (AUTO) 4.9 /CMM (1.8-8.9); NEUTROPHILS % (AUTO) 61.1 % (43.0-81.0); PLATELET COUNT (AUTO) 165 /CMM (150-450); RED BLOOD CELL COUNT(AUTO) 3.06 MIL/uL (4.5-6.0); WHITE BLOOD COUNT (AUTO) 8.1 K/uL (4.3-11.0)
[2019-03-23 06:36] LABS: CALCIUM, SERUM 8.5 mg/dL (8.5-10.1); CARBON DIOXIDE 19 mmol/L (21-32); CREATININE 1.8 mg/dL (0.6-1.3); GLUCOSE 86 mg/dL (74-106); MAGNESIUM 2.2 mg/dL (1.8-2.4); PHOSPHORUS 3.1 mg/dL (2.5-4.9); POTASSIUM 3.2 mmol/L (3.5-5.1); UREA NITROGEN, BLOOD 64 mg/dL (7-18)
[2019-03-23 07:20] LABS: CHLORIDE 138 mmol/L (98-107); SODIUM SERUM 173 mmol/L (136-145)
--- NOTE | 2019-03-23 07:58 | NUR ---
RN NOTES PT SLEEPING IN BED. PT APPEARS COMFORTABLE, NONLABORED BREATHING ON OXYGEN NC AT 2L. NO SOB OR ACUTE DISTRESS NOTED. BED LOCKED, LOWERED, AND CALL LIGHT WITHIN REACH.
[2019-03-23 08:00] VITALS: BP 108/50
[2019-03-23] MEDS: POTASSIUM CL. PREMIX PERIPHER. 50 ML IV SCH ×3 (11:00→13:00)
[2019-03-23] MEDS ORDERED: POTASSIUM CHLORIDE 20 MEQ TAB.PRT.SR PO SCH (11:00)
[2019-03-23] MEDS: MORPHINE SULFATE INJ 2 MG/ML DISP.SYRIN IM PRN ×2 (15:31→20:54)
[2019-03-23 16:00] VITALS: BP 87/39
[2019-03-23] MEDS ORDERED: CEFTRIAXONE 1 G in IV D5W 50 ML IV SCH (17:30)
--- NOTE | 2019-03-23 19:15 | NUR ---
RN OPENING NOTES Patient received sleeping in bed, appears comfortable, family at bedside. Breathing even and unlabored, on O2 at 2LPM. In no apparent distress. Coker catheter in place, draining. Patient for comfort measures only. Safety measures in place; call light within reach. Bed in low, locked position. Will continue to monitor accordingly.
--- NOTE | 2019-03-23 19:17 | NUR ---
RN CLOSING NOTES PT RESTING AND AWAKE INTERMITTENTLY . PT IS NONVERBAL, WITH FAMILY AT THE BEDSIDE. PT HAS NO SOB OR ANY ACUTE DISTRESS NOTED. PT APPEARS COMFORTABLE. ALL NEEDS MET. MEDICATIONS GIVEN. BED LOCKED AND LOWERED WITH CALL LIGHT WITHIN REACH. ENDORSED CARE TO PM SHIFT.
[2019-03-23 20:28] VITALS: BP 80/44
[2019-03-23 20:45] VITALS: BP 89/47
--- NOTE | 2019-03-23 20:55 | NUR ---
RN NOTES Patient restless and appears to be in pain after patient was turned. Family requested for morphine. Morphine 2mg given as ordered. Will continue to monitor accordingly
[2019-03-24] MEDS: LORAZEPAM INJ 2 MG/ML VIAL IV PRN ×3 (01:23→20:53)
--- NOTE | 2019-03-24 01:25 | NUR ---
RN NOTES Patient is restless. Ativan 1mg given as ordered. Wasted excess with another RN
--- NOTE | 2019-03-24 07:20 | NUR ---
MS RN OPENING NOTE RECEIVED PT IN BED, NON-VERBAL, EYES OPEN SPONTANEOUSLY TO TACTILE STIMULI. BREATHING IS EVEN AND UNLABORED ON 2L NC, NO ACUTE DISTRESS NOTED AT THIS TIME. PT IS ON COMFORT MEASURES. RIGHT FA #20G IS SALINE LOCKED WITHOUT REDNESS OR SWELLING, LUNA CATHETER NOTED TO BE DRAINING DARK YELLOW URINE. ASPIRATION AND CONTACT PRECAUTIONS MAINTAINED. BED IS LOCKED AND IN LOWEST POSITION, SIDE RAILS UP X2, BED ALARM ON, CALL LIGHT AND POSSESSIONS WITHIN REACH.
--- NOTE | 2019-03-24 07:35 | NUR ---
RN CLOSING NOTES PATIENT RESTING IN BED, NONVERBAL. BREATHING EVEN AND UNLABORED, ON O2 AT 2LPM. PT HAS NO SOB OR ANY ACUTE DISTRESS NOTED. PT APPEARS COMFORTABLE. ALL NEEDS MET. PRN MEDICATIONS GIVEN. BED LOCKED AND LOWERED WITH CALL LIGHT WITHIN REACH. ENDORSED CARE TO AM SHIFT RN.
[2019-03-24] MEDS: MORPHINE SULFATE INJ 2 MG/ML DISP.SYRIN IM PRN ×4 (07:49→23:39)
[2019-03-24 08:00] VITALS: BP 99/42
--- NOTE | 2019-03-24 13:11 | NUR ---
MS RN NOTE INFORMED HOSPITALIST OF PT REQUEST TO SPEAK WITH HIM, AWAITING RESPONSE.
[2019-03-24 16:00] VITALS: BP 97/35
--- NOTE | 2019-03-24 17:00 | NUR ---
MS RN NOTE CONTACTED AGAIN REGARDING PT FAMILY REQUEST TO SPEAK WITH AWAITING RESPONSE.
--- NOTE | 2019-03-24 18:00 | NUR ---
MS RN NOTE PER FAMILY SHOULD SPEAK WITH .
--- NOTE | 2019-03-24 18:01 | NUR ---
MS RN NOTE CALLED , AWAITING RESPONSE.
--- NOTE | 2019-03-24 18:26 | NUR ---
MS RN CLOSING NOTE PT IN BED, NON-VERBAL, EYES OPEN SPONTANEOUSLY TO TACTILE STIMULI. BREATHING IS EVEN AND 5L VIA SIMPLE MASK. NO ACUTE DISTRESS NOTED AT THIS TIME. PT IS ON COMFORT MEASURES. RIGHT FA #20G IS SALINE LOCKED WITHOUT REDNESS OR SWELLING, LUNA CATHETER NOTED TO BE DRAINING DARK YELLOW URINE. ASPIRATION AND CONTACT PRECAUTIONS MAINTAINED. ADLS PROVIDED, PT ASSISTED TO TURN AND REPOSITION Q2H FOR THE DURATION OF THE SHIFT. BED IS LOCKED AND IN LOWEST POSITION, SIDE RAILS UP X2, BED ALARM ON, CALL LIGHT AND POSSESSIONS WITHIN REACH. WILL ENDORSE TO SCIENTIFIC INFORMATICS LEADER NURSE FOR CONTINUITY OF CARE.
[2019-03-24 18:50] VITALS: BP 99/44
--- NOTE | 2019-03-24 18:50 | NUR ---
MS RN NOTE ADMINISTERED MORPHINE 2M IM FOR COMFORT ORDERED. VS AT BASELINE.
--- NOTE | 2019-03-24 19:20 | NUR ---
MS RN NOTES RECEIVED ON LEFT SIDE POSITION,BREATHING NON LABORED,ISOLATION PRECAUTION FOR POSITIVE C-DIFF.ON PALLIATIVE CARE UNDER THE SERVICE OF DR MASTERSON.LUNA CATH IN PLACE WITH SCANTY OUTPUT.O2 IN USED AT 5L BY SIMPLE MASK.WILL CONTINUE TO MONITOR STATUS.
[2019-03-24 20:00] VITALS: BP 97/60
[2019-03-24 20:15] VITALS: BP 97/60
--- NOTE | 2019-03-24 20:53 | NUR ---
MS RN NOTES NOTED RAPID RESPIRATIONS 36/MINUTE,ATIVAN 1MG IV GIVEN ORDERED
--- NOTE | 2019-03-24 23:39 | NUR ---
MS RN NOTES APPEARS RESTLESS,MORPHINE 2MG IM GIVEN ON RIGHT DELTOID
--- NOTE | 2019-03-25 | NUR ---
MS RN NOTES WITH LOTS OF MUCUS NOTED,ORAL SUCTION DONE
--- NOTE | 2019-03-25 02:00 | NUR ---
MS RN NOTES APPEARS CALM,MORPHINE IM EFFECTIVE
[2019-03-25] MEDS: MORPHINE SULFATE INJ 2 MG/ML DISP.SYRIN IM PRN ×2 (03:40→08:03)
--- NOTE | 2019-03-25 03:40 | NUR ---
MS RN NOTES MOANS,RR MORE THAN 30'S POST REPOSITIONING.MEDICATED WITH MORPHINE 2MG IV FOR COMFORT.
--- NOTE | 2019-03-25 06:33 | NUR ---
MS RN NOTES MORE CALM THIS TIME,COMFORT MEASURES RENDERED.REPOSITION PER PROTOCOL.WILL CONTINUE TO MONITOR STATUS.ENDORSE TO ROSA NOLEN FOR MUNIRA
--- NOTE | 2019-03-25 07:43 | NUR ---
MS RN OPENING NOTE RECEIVED PT IN BED, NON-VERBAL. BREATHING IS EVEN AND UNLABORED ON 5L SIMPLE MASK, NO ACUTE DISTRESS NOTED AT THIS TIME. PT IS ON COMFORT MEASURES. RIGHT FA #20G IS SALINE LOCKED WITHOUT REDNESS OR SWELLING, LUNA CATHETER NOTED TO BE DRAINING DARK YELLOW URINE. ASPIRATION AND CONTACT PRECAUTIONS MAINTAINED. BED IS LOCKED AND IN LOWEST POSITION, SIDE RAILS UP X2, BED ALARM ON, CALL LIGHT AND POSSESSIONS WITHIN REACH.
[2019-03-25 08:00] VITALS: BP 67/26
[2019-03-25] MEDS ORDERED: ACETAMINOPHEN 650 MG/SUPP.RECT RC PRN (08:00)
--- NOTE | 2019-03-25 10:30 | NUR ---
MS RN NOTE TIME OF 1030, PRONOUNCED BY CHARGE NURSE. DAUGHTER EDUARDO AT THE BEDSIDE.
--- NOTE | 2019-03-25 10:32 | NUR ---
MS RN NOTE INFORMED VIA TELEPHONE OF PT PASSING.
--- NOTE | 2019-03-25 10:35 | NUR ---
MS RN NOTE [facility] CONTACTED PER PROTOCOL. SPOKE WITH AMIE, .
--- NOTE | 2019-03-25 10:42 | NUR ---
MS RN NOTE INFORMED DR. CASTELLANOS OF PT PASSING.
--- NOTE | 2019-03-25 11:16 | NUR ---
MS RN NOTE SPOKE WITH JOSE FRANCISCO FROM [facility]. PER JOSE FRANCISCO OKAY TO RELEASE BODY.
--- NOTE | 2019-03-25 11:25 | NUR ---
MS RN NOTE OBTAINED TELEPHONE CONSENT WITH 2 RN VERIFICATION FROM [facility] AND PRIMARY DECISION MAKER EDUARDO CAGE TO RELEASE BODY TO [facility]
--- NOTE | 2019-03-25 11:53 | NUR ---
MS RN NOTE SPOKE WITH DEDE FROM [facility]. DEDE CONFIRMED THAT ARRANGEMENTS HAVE BEEN MADE WITH FAMILY FOR THE PT. PROVIDED CONTACT INFORMATION FOR DAUGHTER EDUARDO, PER DEDE THEY WILL END FINDER FORMING DEPARTMENT THE PT IN APPROXIMATELY 2 HOURS. INFORMED NURSING INSTRUCTIONAL LEADER.
== END 2019-03-25 10:30 | disposition expired | DRG 682 ==
LOC: ER 12:52 → ICU 15:37 → TELE 03-21 16:00 → MED 03-22 09:53
PROVIDERS: ADMIT Emergency Medicine Hospice and Palliative Medicine; ATTEND Nurse Practitioner Acute Care
DX: N17.0 Acute kidney failure with tubular necrosis (principal); I21.A1 Myocardial infarction type 2; E43 Unspecified severe protein-calorie malnutrition; G93.41 Metabolic encephalopathy; I69.354 Hemiplegia and hemiparesis following cerebral infarction affecting left non-dominant side; A04.72 Enterocolitis due to Clostridium difficile, not specified as recurrent; E87.0 Hyperosmolality and hypernatremia; D68.59 Other primary thrombophilia; N39.0 Urinary tract infection, site not specified; R47.01 Aphasia; Z51.5 Encounter for palliative care; Z66 Do not resuscitate; I12.9 Hypertensive chronic kidney disease with stage 1 through stage 4 chronic kidney disease, or unspecified chronic kidney disease; E87.6 Hypokalemia; E78.5 Hyperlipidemia, unspecified; K21.9 Gastro-esophageal reflux disease without esophagitis; R62.7 Adult failure to thrive; E86.0 Dehydration; B96.1 Klebsiella pneumoniae [K. pneumoniae] as the cause of diseases classified elsewhere; D63.8 Anemia in other chronic diseases classified elsewhere; G20 Parkinson's disease; I10 Essential (primary) hypertension; F02.80 Dementia in other diseases classified elsewhere, unspecified severity, without behavioral disturbance, psychotic disturbance, mood disturbance, and anxiety; Z74.01 Bed confinement status; Z85.46 Personal history of malignant neoplasm of prostate; Z95.1 Presence of aortocoronary bypass graft; Z79.82 Long term (current) use of aspirin; M19.90 Unspecified osteoarthritis, unspecified site; Z88.8 Allergy status to other drugs, medicaments and biological substances; Z79.899 Other long term (current) drug therapy; E86.1 Hypovolemia; R13.10 Dysphagia, unspecified; N18.9 Chronic kidney disease, unspecified; Z87.81 Personal history of (healed) traumatic fracture; Z98.890 Other specified postprocedural states
CPT/HCPCS: 36415; 36600; 71045-TC; 80048-TC; 80061-TC; 80076-TC; 81000-TC; 82803-TC; 83690-TC; 83735-TC; 84100-TC; 84484-TC; 85025-TC; 87081-TC; 87086-TC; 87186-TC; 94799-TC; G0378; J0696; J2060; J2270; J3480; J3490; J7030; J7060; J7070